=== PATIENT | male | born 1950 | race Caucasian/White ===

== ENCOUNTER → 2016-08-01 | Outpatient (CLI) | payer BC ==
[2016-08-01 11:54] LABS: HEMOGLOBIN A1C 7.9 % (4.5-6.2)
[2016-08-01 12:02] LABS: BLOOD UREA NITROGEN 18 mg/dL (7-18); CALCIUM 9.1 mg/dL (8.5-10.1); CHLORIDE 107 mmol/L (98-107); COR NA(FOR HYPERGLY) 144 mmol/L (136-145); GLUCOSE 190 mg/dL (65-99); SODIUM 142 mmol/L (136-145); TSH (3RD GENERATION) 3.273 uIU/mL (0.358-3.74); eGFR BLACK RACES > 60 (>60); eGFR NON BLACK RACES > 60 (>60)
== END ==
LOC: LAB 11:23
PROVIDERS: ATTEND Nurse Practitioner Family
DX: E03.8 Other specified hypothyroidism (principal); E11.9 Type 2 diabetes mellitus without complications; I10 Essential (primary) hypertension
CPT/HCPCS: 36415; 80048; 83036; 84443

== ENCOUNTER → 2016-10-14 | Outpatient (CLI) | payer OTHER ==
[2016-10-14 09:03] LABS: HEMOGLOBIN A1C 8.2 % (4.5-6.2)
[2016-10-14 09:06] LABS: BLOOD UREA NITROGEN 14 mg/dL (7-18); CALCIUM 9.6 mg/dL (8.5-10.1); CARBON DIOXIDE 30.3 mmol/L (21-32); CHLORIDE 109 mmol/L (98-107); CHOL/HDL RATIO 2.5 (0.0-5.0); CHOLESTEROL 99 mg/dL (0-200); COR NA(FOR HYPERGLY) 146 mmol/L (136-145); CREATININE 0.84 mg/dL (0.70-1.30); GLUCOSE 130 mg/dL (65-99); HDL CHOLESTEROL 40 mg/dL (40-60); SODIUM 145 mmol/L (136-145); TRIGLYCERIDES 102 mg/dL (0-150); eGFR BLACK RACES > 60 (>60); eGFR NON BLACK RACES > 60 (>60)
== END ==
LOC: LAB 08:25
PROVIDERS: ATTEND Nurse Practitioner Family
DX: E78.4 Other hyperlipidemia (principal); E03.8 Other specified hypothyroidism; E11.9 Type 2 diabetes mellitus without complications; I10 Essential (primary) hypertension
CPT/HCPCS: 36415; 80048; 80061; 83036; 84443

== ENCOUNTER → 2017-03-28 | Outpatient (CLI) | payer OTHER ==
--- NOTE | 2017-03-28 10:36 | RAD ---
Examination: Right knee, three views History: Knee pain Findings: There is degenerative narrowing of patellar-femoral and medial compartments. No fracture, b one destruction or synovial effusion is demonstrated. Impression: Osteoarthritis, no acute process identified. Reported By:
== END ==
LOC: RAD 09:57
PROVIDERS: ATTEND Nurse Practitioner Family
DX: M25.561 Pain in right knee (principal); M17.11 Unilateral primary osteoarthritis, right knee
CPT/HCPCS: 73564

== ENCOUNTER 2021-10-14 09:22 | Observation (INO) ==
[2021-10-14 10:37] LABS: BASOPHILS # (AUTO) 0.1 X10^3/uL (0.0-0.1); EOSINOPHILS # (AUTO) 0.5 x10^3/uL (0.0-0.2); EOSINOPHILS % (AUTO) 6.1 % (0.9-2.9); HEMATOCRIT 38.1 % (42.0-54.0); HEMOGLOBIN 12.9 g/dL (13.5-18.0); LYMPHOCYTES % (AUTO) 22.9 % (21.0-51.0); MEAN CORPUSCULAR HEMOGLOBIN 28.8 pg (27.0-34.0); MEAN CORPUSCULAR HGB CONC 33.8 g/dL (33.0-35.0); MEAN PLATELET VOLUME 7.7 fL (7.4-11.0); MONOCYTES # (AUTO) 0.7 x10^3/uL (0.3-0.8); MONOCYTES % (AUTO) 8.7 % (0.0-13.0); NEUTROPHILS # (AUTO) 5.2 x10^3/uL (2.2-4.8); NEUTROPHILS % (AUTO) 61.3 % (42.0-75.0); RED BLOOD COUNT 4.48 X10^6/uL (4.7-6.0); RED CELL DISTRIBUTION WIDTH 13.8 % (11.6-16.5); WHITE BLOOD COUNT 8.5 X10^3/uL (3.6-10.0)
[2021-10-14 10:53] LABS: ALANINE AMINOTRANSFERASE 15 Units/L (12-78); ALBUMIN 3.4 g/dL (3.4-5.0); ALKALINE PHOSPHATASE 84 Units/L (46-116); ASPARTATE AMINO TRANSFERASE 11 Units/L (15-37); BLOOD UREA NITROGEN 21 mg/dL (7-18); CALCIUM 9.5 mg/dL (8.5-10.1); CARBON DIOXIDE 28.5 mmol/L (21-32); CHLORIDE 100 mmol/L (98-107); COR NA(FOR HYPERGLY) 139 mmol/L (136-145); CREATININE 0.95 mg/dL (0.70-1.30); SODIUM 138 mmol/L (136-145); TOTAL PROTEIN 7.1 g/dL (6.4-8.2); eGFR NON BLACK RACES > 60 (>60)
[2021-10-14 11:02] LABS: TOTAL PSA 0.16 ng/mL (0.13-4.0)
[2021-10-14] MEDS: D5 1/2 NS 1,000 ML 1,000 ML IV SCH ×2 (11:15→22:20)
[2021-10-14] MEDS: DILAUDID INJ IVP PRN ×2 (11:45→22:20)
[2021-10-14 12:21] VITALS: BMI 34.4
--- NOTE | 2021-10-14 13:54 | DR.H&P ---
H&P History & Physical for Day of: H&P Date: 10/14/21 Chief Complaint Chief Complaint: back/flank pain Allergies Allergies Allergy/AdvReac Type Severity Reaction Status Date / Time No Known Drug Allergies Allergy Verified 03/03/21 07:37 History of Present Illness History of Present Illness: Mr Rodarte is a 70 y/o male with a PMH of prostate cancer s/p radiation, carcinoid tumor, type 2 diabetes, HTN and HLD presented with worsening right flank pain. He said it started 2 days ago and has been worsening. He came to see Dr Bourgeois this morning for a trigger point injection but he could hardly walk and was in severe pain so he was sent for admission. He states it started suddenly 2 days ago, mostly right side flank area. He states it hurts when he tries to walk. Denies any falls or injuries. Denies heavy lifting or any trauma. He saw Dr De La Rosa (urology) 2 weeks ago. He was suppose to have CTAP done to follow up for his prostate cancer but he could not make his appointment due to severe pain. He denies numbness or tingling. He did not have any bone mets from the cancer. Denies urinary symptoms, denies hematuria. Labs reviewed Plan: continue pain control. Resume home medications. Follow lumbar XR. Will order CTAP to evaluate further. Patient's pain seems to be more in the right flank area. Monitor AM labs/imaging. Past Medical History Past Medical History: Diabetes, Dyslipidemia, Hypertension and Hypothyroidism Additional Medical History: Prostate cancer Carcinoid tumor Social History Does patient currently use any type of tobacco product: No Have you used tobacco products in the last 12 months: No Type of Tobacco Use: None How many years tobacco product used: 0 Alcohol Use: None Drug Use: None Prescription drug monitoring program results: PDMP reviewed and no concerns identified Medications Home Medications: No Known Drug Allergies Allergy (Verified 03/03/21 07:37) CONTINUE taking the following medications carvedilol 12.5 mg PO BID 10/14/21 [History] insulin glargine [Lantus Solostar U-100 Insulin] 65 unit SUBCUT DAILY 10/14/21 [History] ketorolac 10 mg PO PRN PRN 10/14/21 [History] levothyroxine [Synthroid] 200 mcg PO DAILYAC 10/14/21 [History] metformin 750 mg PO BID 10/14/21 [History] nifedipine [Procardia XL] 1 mg PO DAILY 10/14/21 [History] rosuvastatin 40 mg PO HS 10/14/21 [History] saxagliptin-metformin [Kombiglyze XR] 1 tab PO DAILY 10/14/21 [History] tamsulosin 0.4 mg PO HS 10/14/21 [History] Labs Result Diagrams: 10/14/21 10:21 10/14/21 10:21 Labs: Laboratory WBC 8.5 X10^3/uL (3.6-10.0) 10/14/21 10:21 RBC 4.48 X10^6/uL (4.7-6.0) L 10/14/21 10:21 Hgb 12.9 g/dL (13.5-18.0) L 10/14/21 10:21 Hct 38.1 % (42.0-54.0) L 10/14/21 10:21 MCV 85.0 fL (80.0-100.0) 10/14/21 10:21 MCH 28.8 pg (27.0-34.0) 10/14/21 10:21 MCHC 33.8 g/dL (33.0-35.0) 10/14/21 10:21 RDW 13.8 % (11.6-16.5) 10/14/21 10:21 Plt Count 217 X10^3/uL (150.0-450.0) 10/14/21 10:21 MPV 7.7 fL (7.4-11.0) 10/14/21 10:21 Neut % (Auto) 61.3 % (42.0-75.0) 10/14/21 10:21 Lymph % (Auto) 22.9 % (21.0-51.0) 10/14/21 10:21 [place] % (Auto) 8.7 % (0.0-13.0) 10/14/21 10:21 Eos % (Auto) 6.1 % (0.9-2.9) H 10/14/21 10:21 Baso % (Auto) 1.0 % (0.2-1.0) 10/14/21 10:21 Neut # (Auto) 5.2 x10^3/uL (2.2-4.8) H 10/14/21 10:21 Lymph # (Auto) 2.0 X10^3/uL (1.3-2.9) 10/14/21 10:21 [place] # (Auto) 0.7 x10^3/uL (0.3-0.8) 10/14/21 10:21 Eos # (Auto) 0.5 x10^3/uL (0.0-0.2) H 10/14/21 10:21 Baso # (Auto) 0.1 X10^3/uL (0.0-0.1) 10/14/21 10:21 Absolute Nucleated RBC 0.0 /100WBC 10/14/21 10:21 Sodium 138 mmol/L (136-145) 10/14/21 10:21 Corrected Sodium 139 mmol/L (136-145) 10/14/21 10:21 Potassium 4.5 mmol/L (3.5-5.1) 10/14/21 10:21 Chloride 100 mmol/L (98-107) 10/14/21 10:21 Carbon Dioxide 28.5 mmol/L (21-32) 10/14/21 10:21 BUN 21 mg/dL (7-18) H 10/14/21 10:21 Creatinine 0.95 mg/dL (0.70-1.30) 10/14/21 10:21 Est GFR (MDRD) Af Amer > 60 (>60) 10/14/21 10:21 Est GFR (MDRD) Non-Af > 60 (>60) 10/14/21 10:21 Glucose 153 mg/dL (65-99) H 10/14/21 10:21 POC Glucose (mg/dL) 136 mg/dL (65-99) H 10/14/21 13:00 Calcium 9.5 mg/dL (8.5-10.1) 10/14/21 10:21 Corrected Calcium TNP 10/14/21 10:21 Total Bilirubin 0.30 mg/dL (0.2-1.0) 10/14/21 10:21 AST 11 Units/L (15-37) L 10/14/21 10:21 ALT 15 Units/L (12-78) 10/14/21 10:21 Alkaline Phosphatase 84 Units/L (46-116) 10/14/21 10:21 Total Protein 7.1 g/dL (6.4-8.2) 10/14/21 10:21 Albumin 3.4 g/dL (3.4-5.0) 10/14/21 10:21 Globulin 3.7 g/dL (2.5-4.5) 10/14/21 10:21 Albumin/Globulin Ratio 0.9 Ratio (1.1-2.1) L 10/14/21 10:21 Total PSA 0.16 ng/mL (0.13-4.0) 10/14/21 10:21 SARS-CoV-2 (PCR) Negative (NEGATIVE) 10/14/21 10:20 SARS-CoV-2 (PCR) Cancelled 10/14/21 10:20 Review of Systems Constitutional: Weakness Eyes: No Symptoms Reported Respiratory: No Symptoms Reported Cardiovascular: No Symptoms Reported Gastrointestinal: No Symptoms Reported Genitourinary: No Symptoms Reported Musculoskeletal: Back Pain Skin: No Symptoms Reported Neurological: No Symptoms Reported Physical Exam Vital Signs: Temperature 97.0 F Pulse Rate [Bilateral Radial] 62 Respiratory Rate 20 Blood Pressure [Right Arm] 146/74 Blood Pressure 184/86 O2 Sat by Pulse Oximetry 95 Oriented: Normal Eyes: Normal Ear: Normal Nose: Normal Throat: Normal Respiratory: Clear Throughout Cardiovascular: Normal Auscultation: Bowel Sounds: Normal Palpation: Normal Tenderness: Normal Skin: Normal Musculoskeletal: Right (flank tenderness, no bruising or signs of trauma. Focal tenderness. ) and Motor Deficit Psychiatric: Normal Mood Description: Calm Affect: Normal Speech Pattern: Clear and Appropriate Review H&P Reviewed: Yes Patient was examined?: Yes
--- NOTE | 2021-10-14 14:34 | RAD ---
HISTORYSEVERE LOWER BACK PAIN SX BACK SURGERYSTUDYLUMBAR SPINE, COMPLETECOMPARISONFINDINGSThere is retrolisthesis of L2 on L3 and L3 on L4 and L4 on L5. There has been a posterior stabilization spanning from L2 through L5 there is no vertebral compression deformity. There is some chronic wedging L1. There is severe multilevel disc degeneration. There is multilevel facet hypertrophy which is very severe from L4 through S1. There is no pars defect. There is heavy atherosclerosis in the abdominal aorta.IMPRESSIONFairly severe disc and facet degeneration. Nothing acute.Electronically signed by: Carlos Murcia (Oct 14, 2021 14:33:07)
[2021-10-14 16:03] LABS: BILIRUBIN,URINE 2+ (NEGATIVE); BLOOD/HEMOGLOBIN,URINE NEGATIVE (NEGATIVE); GLUCOSE, URINE NEGATIVE (NEGATIVE); KETONES,URINE NEGATIVE (NEGATIVE); LEUKOCYTE ESTERASE ,URINE NEGATIVE (NEGATIVE); NITRITES,URINE NEGATIVE (NEGATIVE); PROTEIN,URINE 2+ (NEGATIVE); UROBILINOGEN,URINE 1+ (NORMAL)
[2021-10-14 16:18] LABS: APPEARANCE,URINE CLEAR (CLEAR); BACTERIA,URINE TRACE /HPF (NEGATIVE); COLOR,URINE AMBER (YELLOW); HYALINE CASTS, URINE FEW /LPF (NEGATIVE); RBC,URINE NONE SEEN /HPF (0-3); SQUAMOUS EPITHELIAL CELL,UR RARE /HPF (NEGATIVE)
[2021-10-14 16:19] LABS: SPERM,URINE RARE /HPF (NEGATIVE)
[2021-10-14] MEDS: LOVENOX INJ 40 MG SYR SC SCH (18:27)
[2021-10-14] MEDS: CRESTOR TAB 10 MG PO SCH (21:07)
[2021-10-14] MEDS: FLOMAX PO SCH (21:07)
[2021-10-14] MEDS: COREG TAB 12.5 MG PO SCH (21:07)
[2021-10-14] MEDS: ZANAFLEX PO PRN (21:07)
[2021-10-14] MEDS: GLUCOPHAGE XR 24-HR PO SCH (21:08)
[2021-10-15 04:50] LABS: BLOOD UREA NITROGEN 19 mg/dL (7-18); CALCIUM 9.3 mg/dL (8.5-10.1); CHLORIDE 100 mmol/L (98-107); COR NA(FOR HYPERGLY) 139 mmol/L (136-145); CREATININE 0.86 mg/dL (0.70-1.30); SODIUM 137 mmol/L (136-145); eGFR NON BLACK RACES > 60 (>60)
[2021-10-15 04:56] LABS: BASOPHILS # (AUTO) 0.1 X10^3/uL (0.0-0.1); EOSINOPHILS # (AUTO) 0.5 x10^3/uL (0.0-0.2); EOSINOPHILS % (AUTO) 7.3 % (0.9-2.9); HEMATOCRIT 32.8 % (42.0-54.0); HEMOGLOBIN 11.3 g/dL (13.5-18.0); LYMPHOCYTES # (AUTO) 2.6 X10^3/uL (1.3-2.9); LYMPHOCYTES % (AUTO) 34.9 % (21.0-51.0); MEAN CORPUSCULAR HEMOGLOBIN 29.2 pg (27.0-34.0); MEAN CORPUSCULAR HGB CONC 34.4 g/dL (33.0-35.0); MEAN CORPUSCULAR VOLUME 84.8 fL (80.0-100.0); MEAN PLATELET VOLUME 7.5 fL (7.4-11.0); MONOCYTES # (AUTO) 0.6 x10^3/uL (0.3-0.8); MONOCYTES % (AUTO) 8.6 % (0.0-13.0); NEUTROPHILS # (AUTO) 3.6 x10^3/uL (2.2-4.8); NEUTROPHILS % (AUTO) 48.2 % (42.0-75.0); RED BLOOD COUNT 3.87 X10^6/uL (4.7-6.0); RED CELL DISTRIBUTION WIDTH 13.7 % (11.6-16.5); WHITE BLOOD COUNT 7.4 X10^3/uL (3.6-10.0)
[2021-10-15] MEDS: DILAUDID INJ IVP PRN ×3 (05:58→17:22)
[2021-10-15] MEDS: SYNTHROID 100 mcg TAB PO SCH (05:58)
--- NOTE | 2021-10-15 08:43 | PCM.PROG ---
Progress Note Progress Note for Day of Date of Exam: 10/15/21 Subjective Subjective: Patient seen at bedside, no acute events overnight. He feels slightly better this morning. He still has pain in that right flank/abdomen area. He is going to have CTAP done this morning. Labs and imaging reviewed Lumbar XR: severe multilevel DDD Plan: follow CTAP for cancer surveillance. Patient does have a hx of prostate cancer s/p radiation. Continue pain control and muscle relaxer. Continue home medications. PT/OT as tolerated. Monitor AM labs/imaging. Past Medical Family Social History Past Med/Fam/Surg Hx: No changes since H&P Allergies: Allergies No Known Drug Allergies Allergy (Verified 03/03/21 07:37) Review of Systems ROS: No change since H&P Vital Signs and I&O's Vital Signs: Temperature 98.5 F Pulse Rate [Bilateral Radial] 61 Respiratory Rate 20 Blood Pressure [Right Arm] 175/79 Blood Pressure 184/86 O2 Sat by Pulse Oximetry 95 Intake and Output: Intake & Output 10/12/21 10/13/21 10/14/21 10/15/21 23:59 23:59 23:59 23:59 Intake Total 860 / 860 1138 / 1138 Output Total 1200 / 1200 850 / 850 Balance -340 / -340 288 / 288 Physical Exam Oriented: Normal Eyes: Normal Ear: Normal Nose: Normal Throat: Normal Respiratory: Normal Cardiovascular: Normal Auscultation: Bowel Sounds: Normal Tenderness: Normal, Mild and Other (right flank area mild tenderness, soft ) Skin: Normal Musculoskeletal: Right (flank tenderness, no bruising or signs of trauma. Focal tenderness. ) and Motor Deficit Psychiatric: Normal Mood Description: Calm Affect: Normal Speech Pattern: Clear and Appropriate Laboratory and Diagnostics Result Diagrams: 10/15/21 04:30 10/15/21 04:30 Labs: Laboratory WBC 7.4 X10^3/uL (3.6-10.0) 10/15/21 04:30 RBC 3.87 X10^6/uL (4.7-6.0) L 10/15/21 04:30 Hgb 11.3 g/dL (13.5-18.0) L 10/15/21 04:30 Hct 32.8 % (42.0-54.0) L 10/15/21 04:30 MCV 84.8 fL (80.0-100.0) 10/15/21 04:30 MCH 29.2 pg (27.0-34.0) 10/15/21 04:30 MCHC 34.4 g/dL (33.0-35.0) 10/15/21 04:30 RDW 13.7 % (11.6-16.5) 10/15/21 04:30 Plt Count 180 X10^3/uL (150.0-450.0) 10/15/21 04:30 MPV 7.5 fL (7.4-11.0) 10/15/21 04:30 Neut % (Auto) 48.2 % (42.0-75.0) 10/15/21 04:30 Lymph % (Auto) 34.9 % (21.0-51.0) 10/15/21 04:30 [place] % (Auto) 8.6 % (0.0-13.0) 10/15/21 04:30 Eos % (Auto) 7.3 % (0.9-2.9) H 10/15/21 04:30 Baso % (Auto) 1.0 % (0.2-1.0) 10/15/21 04:30 Neut # (Auto) 3.6 x10^3/uL (2.2-4.8) 10/15/21 04:30 Lymph # (Auto) 2.6 X10^3/uL (1.3-2.9) 10/15/21 04:30 [place] # (Auto) 0.6 x10^3/uL (0.3-0.8) 10/15/21 04:30 Eos # (Auto) 0.5 x10^3/uL (0.0-0.2) H 10/15/21 04:30 Baso # (Auto) 0.1 X10^3/uL (0.0-0.1) 10/15/21 04:30 Absolute Nucleated RBC 0.1 /100WBC 10/15/21 04:30 Sodium 137 mmol/L (136-145) 10/15/21 04:30 Corrected Sodium 139 mmol/L (136-145) 10/15/21 04:30 Potassium 4.0 mmol/L (3.5-5.1) 10/15/21 04:30 Chloride 100 mmol/L (98-107) 10/15/21 04:30 Carbon Dioxide 29.0 mmol/L (21-32) 10/15/21 04:30 BUN 19 mg/dL (7-18) H 10/15/21 04:30 Creatinine 0.86 mg/dL (0.70-1.30) 10/15/21 04:30 Est GFR (MDRD) Af Amer > 60 (>60) 10/15/21 04:30 Est GFR (MDRD) Non-Af > 60 (>60) 10/15/21 04:30 Glucose 188 mg/dL (65-99) H 10/15/21 04:30 POC Glucose (mg/dL) 152 mg/dL (65-99) H 10/14/21 20:02 Calcium 9.3 mg/dL (8.5-10.1) 10/15/21 04:30 Corrected Calcium TNP 10/14/21 10:21 Total Bilirubin 0.30 mg/dL (0.2-1.0) 10/14/21 10:21 AST 11 Units/L (15-37) L 10/14/21 10:21 ALT 15 Units/L (12-78) 10/14/21 10:21 Alkaline Phosphatase 84 Units/L (46-116) 10/14/21 10:21 Total Protein 7.1 g/dL (6.4-8.2) 10/14/21 10:21 Albumin 3.4 g/dL (3.4-5.0) 10/14/21 10:21 Globulin 3.7 g/dL (2.5-4.5) 10/14/21 10:21 Albumin/Globulin Ratio 0.9 Ratio (1.1-2.1) L 10/14/21 10:21 Total PSA 0.16 ng/mL (0.13-4.0) 10/14/21 10:21 Specimen Type Clean catch urine 10/14/21 15:50 Urine Color [place] (YELLOW) 10/14/21 15:50 Urine Appearance Clear (CLEAR) 10/14/21 15:50 Urine pH 5.0 (5.0 - 8.0) 10/14/21 15:50 Ur Specific [place] 1.025 (1.000-1.030) 10/14/21 15:50 Urine Protein 2+ (NEGATIVE) 10/14/21 15:50 Urine Glucose (UA) Negative (NEGATIVE) 10/14/21 15:50 Urine Ketones Negative (NEGATIVE) 10/14/21 15:50 Urine Blood Negative (NEGATIVE) 10/14/21 15:50 Urine Nitrite Negative (NEGATIVE) 10/14/21 15:50 Urine Bilirubin 2+ (NEGATIVE) 10/14/21 15:50 Urine Urobilinogen 1+ (NORMAL) 10/14/21 15:50 Ur Leukocyte Esterase Negative (NEGATIVE) 10/14/21 15:50 Urine RBC None seen /HPF (0-3) 10/14/21 15:50 Urine WBC 0-2 /HPF (0-5) 10/14/21 15:50 Ur Squamous Epith Cells Rare /HPF (NEGATIVE) 10/14/21 15:50 Amorphous Sediment 1+ /HPF (NEGATIVE) 10/14/21 15:50 Urine Bacteria Trace /HPF (NEGATIVE) 10/14/21 15:50 Hyaline Casts Few /LPF (NEGATIVE) 10/14/21 15:50 Urine Mucus Few /HPF (NEGATIVE) 10/14/21 15:50 Urine Sperm Rare /HPF (NEGATIVE) 10/14/21 15:50 Ur Culture Indicated? No/not indicated 10/14/21 15:50 SARS-CoV-2 (PCR) Negative (NEGATIVE) 10/14/21 10:20 SARS-CoV-2 (PCR) Cancelled 10/14/21 10:20 Plan (1) Flank pain: Status: Acute (2) Impaired ambulation: Status: Acute (3) Prostate cancer: Status: Acute (4) HTN (hypertension): Status: Acute Qualifiers: Hypertension type: primary hypertension Qualified Code(s): I10 - Essential (primary) hypertension (5) Type 2 diabetes mellitus: Status: Acute Qualifiers: Diabetes mellitus complication status: without complication Diabetes mellitus alf insulin use: with long term care phlebotomist use Qualified Code(s): E11.9 - Type 2 diabetes mellitus without complications; Z79.4 - custodial (current) use of insulin (6) Multilevel degenerative disc disease: Status: Acute (7) Hypothyroidism: Status: Acute Qualifiers: Hypothyroidism type: acquired Qualified Code(s): E03.9 - Hypothyroidism, unspecified
[2021-10-15] MEDS: COREG TAB 12.5 MG PO SCH ×2 (08:55→20:58)
[2021-10-15] MEDS ORDERED: LANTUS SC SCH (09:00)
[2021-10-15] MEDS: GLUCOPHAGE XR 24-HR PO SCH (09:02)
[2021-10-15] MEDS: LOVENOX INJ 40 MG SYR SC SCH (10:05)
[2021-10-15] MEDS: PROCARDIA XL PO SCH (10:05)
--- NOTE | 2021-10-15 12:08 | CT ---
ABDOMEN/PELVIS WITH CONHISTORY: LOWER RIGHT ABD PAINComparison:NoneTechnique:Multiple axial images of the abdomen and pelvis were obtained from the lung bases to the pubic symphysis following the administration of IV contrast as well as oral contrast . Dose reduction techniques including Automated Exposure Control (AEC) and adjustment of mA and kV were utlized.Findings:The heart is normal in size. There is no pericardial effusion. Lung bases are clear without focal consolidation, pleural effusion or pneumothorax.Liver and spleen are normal in size, enhancement characteristics and contour. No focal lesions. The portal vein is patent. No ductal dilitation. Gallbladder is present. No calcified gallstones or gallbladder wall thickening. The pancreas is unremarkable. 1.8 cm right adrenal myelolipoma, unchanged. Kidneys enhance symmetrically without hydronephrosis or nephrolithiasis.No bowel obstruction or inflammation. Appendix not clearly seen however there is no inflammatory change in the right lower quadrant to suggest appendicitis. No abnormal appearing mesenteric or retroperitoneal lymph nodes. . No free fluid or fluid collections.The bladder is normal in appearance. Prostate measures 5.4 cm. Fat containing right inguinal hernia. No free fluid or abnormal pelvic lymph nodes.No aggressive osseous lesions.IMPRESSION:1.No definite source of abdominal pain identified.2. Unchanged incidental findings as above.Electronically signed by: SURYA JIMENEZ (Oct 15, 2021 12:06:47)
[2021-10-15] MEDS: FLEXERIL TAB 10 MG PO SCH ×2 (12:38→19:55)
[2021-10-15] MEDS: D5 1/2 NS 1,000 ML 1,000 ML IV SCH (12:39)
[2021-10-15] MEDS: SOLU-Medrol 125 MG VIAL IVP SCH ×2 (12:40→20:59)
--- NOTE | 2021-10-15 13:00 | DR.PROGNOT ---
Hospital Progress Notes - Progress Note for Day of: Progress Note Date: 10/15/21 - Chief Complaint Chief Complaint: still having severe pain RT lower back and leg .. X Ray showed lumbar disc disease and arthritis .. normal lab work . normal PSA and Ca . - Past Medical Family Social History Past Med/Fam/Surg Hx: No changes since H&P Allergies: Allergies No Known Drug Allergies Allergy (Verified 03/03/21 07:37) - Review Of Systems ROS: No change since H&P - Vital Signs Vital Signs: Temperature 98.5 F Pulse Rate [Bilateral Radial] 61 Respiratory Rate 20 Blood Pressure [Right Arm] 175/79 Blood Pressure 184/86 O2 Sat by Pulse Oximetry 95 - Physical Exam Oriented: Normal Eyes: Normal Ear: Normal Nose: Normal Throat: Normal Respiratory: Normal Cardiovascular: Normal GI:Auscultation: Normal GI:Palpation: Normal GI: Tenderness: Mild, Normal, Other (right flank area mild tenderness, soft) Skin: Normal Musculoskeletal: Right (flank tenderness, no bruising or signs of trauma. Focal tenderness.), Motor Deficit Psychiatric: Normal Mood Description: Calm Affect: Normal Speech Pattern: Clear, Appropriate - Laboratory and Diagnostics Result Diagrams: 10/15/21 04:30 10/15/21 04:30 Labs: Laboratory WBC 7.4 X10^3/uL (3.6-10.0) 10/15/21 04:30 RBC 3.87 X10^6/uL (4.7-6.0) L 10/15/21 04:30 Hgb 11.3 g/dL (13.5-18.0) L 10/15/21 04:30 Hct 32.8 % (42.0-54.0) L 10/15/21 04:30 MCV 84.8 fL (80.0-100.0) 10/15/21 04:30 MCH 29.2 pg (27.0-34.0) 10/15/21 04:30 MCHC 34.4 g/dL (33.0-35.0) 10/15/21 04:30 RDW 13.7 % (11.6-16.5) 10/15/21 04:30 Plt Count 180 X10^3/uL (150.0-450.0) 10/15/21 04:30 MPV 7.5 fL (7.4-11.0) 10/15/21 04:30 Neut % (Auto) 48.2 % (42.0-75.0) 10/15/21 04:30 Lymph % (Auto) 34.9 % (21.0-51.0) 10/15/21 04:30 [place] % (Auto) 8.6 % (0.0-13.0) 10/15/21 04:30 Eos % (Auto) 7.3 % (0.9-2.9) H 10/15/21 04:30 Baso % (Auto) 1.0 % (0.2-1.0) 10/15/21 04:30 Neut # (Auto) 3.6 x10^3/uL (2.2-4.8) 10/15/21 04:30 Lymph # (Auto) 2.6 X10^3/uL (1.3-2.9) 10/15/21 04:30 [place] # (Auto) 0.6 x10^3/uL (0.3-0.8) 10/15/21 04:30 Eos # (Auto) 0.5 x10^3/uL (0.0-0.2) H 10/15/21 04:30 Baso # (Auto) 0.1 X10^3/uL (0.0-0.1) 10/15/21 04:30 Absolute Nucleated RBC 0.1 /100WBC 10/15/21 04:30 Sodium 137 mmol/L (136-145) 10/15/21 04:30 Corrected Sodium 139 mmol/L (136-145) 10/15/21 04:30 Potassium 4.0 mmol/L (3.5-5.1) 10/15/21 04:30 Chloride 100 mmol/L (98-107) 10/15/21 04:30 Carbon Dioxide 29.0 mmol/L (21-32) 10/15/21 04:30 BUN 19 mg/dL (7-18) H 10/15/21 04:30 Creatinine 0.86 mg/dL (0.70-1.30) 10/15/21 04:30 Est GFR (MDRD) Af Amer > 60 (>60) 10/15/21 04:30 Est GFR (MDRD) Non-Af > 60 (>60) 10/15/21 04:30 Glucose 188 mg/dL (65-99) H 10/15/21 04:30 POC Glucose (mg/dL) 215 mg/dL (65-99) H 10/15/21 12:49 Calcium 9.3 mg/dL (8.5-10.1) 10/15/21 04:30 Corrected Calcium TNP 10/14/21 10:21 Total Bilirubin 0.30 mg/dL (0.2-1.0) 10/14/21 10:21 AST 11 Units/L (15-37) L 10/14/21 10:21 ALT 15 Units/L (12-78) 10/14/21 10:21 Alkaline Phosphatase 84 Units/L (46-116) 10/14/21 10:21 Total Protein 7.1 g/dL (6.4-8.2) 10/14/21 10:21 Albumin 3.4 g/dL (3.4-5.0) 10/14/21 10:21 Globulin 3.7 g/dL (2.5-4.5) 10/14/21 10:21 Albumin/Globulin Ratio 0.9 Ratio (1.1-2.1) L 10/14/21 10:21 Total PSA 0.16 ng/mL (0.13-4.0) 10/14/21 10:21 Specimen Type Clean catch urine 10/14/21 15:50 Urine Color [place] (YELLOW) 10/14/21 15:50 Urine Appearance Clear (CLEAR) 10/14/21 15:50 Urine pH 5.0 (5.0 - 8.0) 10/14/21 15:50 Ur Specific [place] 1.025 (1.000-1.030) 10/14/21 15:50 Urine Protein 2+ (NEGATIVE) 10/14/21 15:50 Urine Glucose (UA) Negative (NEGATIVE) 10/14/21 15:50 Urine Ketones Negative (NEGATIVE) 10/14/21 15:50 Urine Blood Negative (NEGATIVE) 10/14/21 15:50 Urine Nitrite Negative (NEGATIVE) 10/14/21 15:50 Urine Bilirubin 2+ (NEGATIVE) 10/14/21 15:50 Urine Urobilinogen 1+ (NORMAL) 10/14/21 15:50 Ur Leukocyte Esterase Negative (NEGATIVE) 10/14/21 15:50 Urine RBC None seen /HPF (0-3) 10/14/21 15:50 Urine WBC 0-2 /HPF (0-5) 10/14/21 15:50 Ur Squamous Epith Cells Rare /HPF (NEGATIVE) 10/14/21 15:50 Amorphous Sediment 1+ /HPF (NEGATIVE) 10/14/21 15:50 Urine Bacteria Trace /HPF (NEGATIVE) 10/14/21 15:50 Hyaline Casts Few /LPF (NEGATIVE) 10/14/21 15:50 Urine Mucus Few /HPF (NEGATIVE) 10/14/21 15:50 Urine Sperm Rare /HPF (NEGATIVE) 10/14/21 15:50 Ur Culture Indicated? No/not indicated 10/14/21 15:50 SARS-CoV-2 (PCR) Negative (NEGATIVE) 10/14/21 10:20 SARS-CoV-2 (PCR) Cancelled 10/14/21 10:20 - Assessment and Plan 1: lower back and RT flank pain . disc disease and radiculopathy . RT inguinal hernia .. on IV steroids, muscle relaxants and pain control ..
[2021-10-15] MEDS: NovoLIN R (or HumuLIN R) SC PRN ×4 (13:02→21:00)
[2021-10-15] MEDS ORDERED: CATAPRES TAB 0.1 MG PO ONE (17:55)
[2021-10-15] MEDS: CRESTOR TAB 10 MG PO SCH (20:58)
[2021-10-15] MEDS: FLOMAX PO SCH (20:59)
[2021-10-15] MEDS: ZANAFLEX PO PRN (20:59)
[2021-10-16] MEDS: DILAUDID INJ IVP PRN ×5 (00:09→23:17)
[2021-10-16] MEDS: FLEXERIL TAB 10 MG PO SCH ×4 (00:13→18:54)
[2021-10-16] MEDS: D5 1/2 NS 1,000 ML 1,000 ML IV SCH ×2 (02:46→07:08)
[2021-10-16 05:16] LABS: BLOOD UREA NITROGEN 17 mg/dL (7-18); CALCIUM 9.1 mg/dL (8.5-10.1); CARBON DIOXIDE 29.3 mmol/L (21-32); CHLORIDE 97 mmol/L (98-107); COR NA(FOR HYPERGLY) 139 mmol/L (136-145); CREATININE 0.94 mg/dL (0.70-1.30); SODIUM 133 mmol/L (136-145); eGFR NON BLACK RACES > 60 (>60)
[2021-10-16 05:19] LABS: BASOPHILS % (AUTO) 0.3 % (0.2-1.0); EOSINOPHILS % (AUTO) 0.1 % (0.9-2.9); HEMATOCRIT 35.8 % (42.0-54.0); HEMOGLOBIN 12.2 g/dL (13.5-18.0); LYMPHOCYTES # (AUTO) 0.8 X10^3/uL (1.3-2.9); LYMPHOCYTES % (AUTO) 9.8 % (21.0-51.0); MEAN CORPUSCULAR HEMOGLOBIN 28.8 pg (27.0-34.0); MEAN CORPUSCULAR VOLUME 84.6 fL (80.0-100.0); MONOCYTES # (AUTO) 0.2 x10^3/uL (0.3-0.8); NEUTROPHILS # (AUTO) 7.3 x10^3/uL (2.2-4.8); NEUTROPHILS % (AUTO) 87.8 % (42.0-75.0); RED BLOOD COUNT 4.23 X10^6/uL (4.7-6.0); RED CELL DISTRIBUTION WIDTH 13.7 % (11.6-16.5); WHITE BLOOD COUNT 8.3 X10^3/uL (3.6-10.0)
[2021-10-16] MEDS: NovoLIN R (or HumuLIN R) SC PRN ×4 (05:47→21:05)
[2021-10-16] MEDS: SYNTHROID 100 mcg TAB PO SCH (05:48)
[2021-10-16] MEDS: SOLU-Medrol 125 MG VIAL IVP SCH ×2 (08:40→21:04)
[2021-10-16] MEDS: PROCARDIA XL PO SCH (08:41)
[2021-10-16] MEDS: COREG TAB 12.5 MG PO SCH ×2 (08:41→21:01)
[2021-10-16] MEDS: LOVENOX INJ 40 MG SYR SC SCH (08:42)
[2021-10-16] MEDS: NS 1,000 ML IV 1,000 ML IV SCH ×3 (08:47→23:18)
[2021-10-16] MEDS ORDERED: LANTUS SC SCH (09:00)
--- NOTE | 2021-10-16 09:17 | RAD ---
HISTORYACUTE PAIN, NO TRAUMASTUDYHIP-RIGHT two [id number] pelvic ring is intact. No acute fracture or dislocation of the hip. Frog leg views of the hip demonstrate no evidence for fracture. No significant hip arthrosis. Partially visualized lumbar hardware.IMPRESSIONNo acute fracture or dislocation.Electronically signed by: MASON ESTRADA (Oct 16, 2021 09:16:10)
--- NOTE | 2021-10-16 09:40 | DR.PROGNOT ---
Hospital Progress Notes - Progress Note for Day of: Progress Note Date: 10/16/21 - Chief Complaint Chief Complaint: still having severe pain RT lower back and leg .improved with sreroids and pain meds .. X Ray showed lumbar disc disease and arthritis .. pelvic and hip X Rays are normal . normal lab work . normal PSA and Ca . - Past Medical Family Social History Past Med/Fam/Surg Hx: No changes since H&P Allergies: Allergies No Known Drug Allergies Allergy (Verified 03/03/21 07:37) - Review Of Systems ROS: No change since H&P - Vital Signs Vital Signs: Temperature 98.6 F Pulse Rate [Left Brachial] 58 Pulse Rate [Bilateral Radial] 60 Respiratory Rate 20 Blood Pressure [Left Arm] 179/88 Blood Pressure [Right Arm] 177/72 Blood Pressure 184/86 O2 Sat by Pulse Oximetry 96 - Physical Exam Oriented: Normal Eyes: Normal Ear: Normal Nose: Normal Throat: Normal Respiratory: Normal Cardiovascular: Normal GI:Auscultation: Normal GI:Palpation: Normal GI: Tenderness: Mild, Normal, Other (right flank area mild tenderness, soft) Skin: Normal Musculoskeletal: Right (flank tenderness, no bruising or signs of trauma. Focal tenderness.), Motor Deficit Psychiatric: Normal Mood Description: Calm Affect: Normal Speech Pattern: Clear, Appropriate - Laboratory and Diagnostics Result Diagrams: 10/16/21 04:05 10/16/21 04:05 Labs: Laboratory WBC 8.3 X10^3/uL (3.6-10.0) 10/16/21 04:05 RBC 4.23 X10^6/uL (4.7-6.0) L 10/16/21 04:05 Hgb 12.2 g/dL (13.5-18.0) L 10/16/21 04:05 Hct 35.8 % (42.0-54.0) L 10/16/21 04:05 MCV 84.6 fL (80.0-100.0) 10/16/21 04:05 MCH 28.8 pg (27.0-34.0) 10/16/21 04:05 MCHC 34.0 g/dL (33.0-35.0) 10/16/21 04:05 RDW 13.7 % (11.6-16.5) 10/16/21 04:05 Plt Count 196 X10^3/uL (150.0-450.0) 10/16/21 04:05 MPV 8.0 fL (7.4-11.0) 10/16/21 04:05 Neut % (Auto) 87.8 % (42.0-75.0) H 10/16/21 04:05 Lymph % (Auto) 9.8 % (21.0-51.0) L 10/16/21 04:05 [place] % (Auto) 2.0 % (0.0-13.0) 10/16/21 04:05 Eos % (Auto) 0.1 % (0.9-2.9) L 10/16/21 04:05 Baso % (Auto) 0.3 % (0.2-1.0) 10/16/21 04:05 Neut # (Auto) 7.3 x10^3/uL (2.2-4.8) H 10/16/21 04:05 Lymph # (Auto) 0.8 X10^3/uL (1.3-2.9) L 10/16/21 04:05 [place] # (Auto) 0.2 x10^3/uL (0.3-0.8) L 10/16/21 04:05 Eos # (Auto) 0.0 x10^3/uL (0.0-0.2) 10/16/21 04:05 Baso # (Auto) 0.0 X10^3/uL (0.0-0.1) 10/16/21 04:05 Absolute Nucleated RBC 0.1 /100WBC 10/16/21 04:05 Sodium 133 mmol/L (136-145) L 10/16/21 04:05 Corrected Sodium 139 mmol/L (136-145) 10/16/21 04:05 Potassium 4.1 mmol/L (3.5-5.1) 10/16/21 04:05 Chloride 97 mmol/L (98-107) L 10/16/21 04:05 Carbon Dioxide 29.3 mmol/L (21-32) 10/16/21 04:05 BUN 17 mg/dL (7-18) 10/16/21 04:05 Creatinine 0.94 mg/dL (0.70-1.30) 10/16/21 04:05 Est GFR (MDRD) Af Amer > 60 (>60) 10/16/21 04:05 Est GFR (MDRD) Non-Af > 60 (>60) 10/16/21 04:05 Glucose 344 mg/dL (65-99) H 10/16/21 04:05 POC Glucose (mg/dL) 267 mg/dL (65-99) H 10/15/21 19:46 Calcium 9.1 mg/dL (8.5-10.1) 10/16/21 04:05 Corrected Calcium TNP 10/14/21 10:21 Total Bilirubin 0.30 mg/dL (0.2-1.0) 10/14/21 10:21 AST 11 Units/L (15-37) L 10/14/21 10:21 ALT 15 Units/L (12-78) 10/14/21 10:21 Alkaline Phosphatase 84 Units/L (46-116) 10/14/21 10:21 Total Protein 7.1 g/dL (6.4-8.2) 10/14/21 10:21 Albumin 3.4 g/dL (3.4-5.0) 10/14/21 10:21 Globulin 3.7 g/dL (2.5-4.5) 10/14/21 10:21 Albumin/Globulin Ratio 0.9 Ratio (1.1-2.1) L 10/14/21 10:21 Total PSA 0.16 ng/mL (0.13-4.0) 10/14/21 10:21 Specimen Type Clean catch urine 10/14/21 15:50 Urine Color Susana (YELLOW) 10/14/21 15:50 Urine Appearance Clear (CLEAR) 10/14/21 15:50 Urine pH 5.0 (5.0 - 8.0) 10/14/21 15:50 Ur Specific [place] 1.025 (1.000-1.030) 10/14/21 15:50 Urine Protein 2+ (NEGATIVE) 10/14/21 15:50 Urine Glucose (UA) Negative (NEGATIVE) 10/14/21 15:50 Urine Ketones Negative (NEGATIVE) 10/14/21 15:50 Urine Blood Negative (NEGATIVE) 10/14/21 15:50 Urine Nitrite Negative (NEGATIVE) 10/14/21 15:50 Urine Bilirubin 2+ (NEGATIVE) 10/14/21 15:50 Urine Urobilinogen 1+ (NORMAL) 10/14/21 15:50 Ur Leukocyte Esterase Negative (NEGATIVE) 10/14/21 15:50 Urine RBC None seen /HPF (0-3) 10/14/21 15:50 Urine WBC 0-2 /HPF (0-5) 10/14/21 15:50 Ur Squamous Epith Cells Rare /HPF (NEGATIVE) 10/14/21 15:50 Amorphous Sediment 1+ /HPF (NEGATIVE) 10/14/21 15:50 Urine Bacteria Trace /HPF (NEGATIVE) 10/14/21 15:50 Hyaline Casts Few /LPF (NEGATIVE) 10/14/21 15:50 Urine Mucus Few /HPF (NEGATIVE) 10/14/21 15:50 Urine Sperm Rare /HPF (NEGATIVE) 10/14/21 15:50 Ur Culture Indicated? No/not indicated 10/14/21 15:50 SARS-CoV-2 (PCR) Negative (NEGATIVE) 10/14/21 10:20 SARS-CoV-2 (PCR) Cancelled 10/14/21 10:20 - Assessment and Plan 1: lower back and RT flank pain . disc disease and radiculopathy . RT inguinal hernia .. on IV steroids, muscle relaxants and pain control .. for MRI lower back on Monday ..
[2021-10-16] MEDS: NEURONTIN CAP 300 MG PO SCH ×3 (12:02→21:02)
--- NOTE | 2021-10-16 19:53 | PCM.PROG ---
Progress Note Progress Note for Day of Date of Exam: 10/16/21 Subjective Subjective: Patient seen at bedside, patient's BP was elevated yesterday. He did get a dose of clonidine. He continues to have right sided flank/lower back pain. CTAP did not show any acute changes. He is currently on pain control with Dilaudid, tizanidine and steroids. He has not been able to stand up due to severe pain. Denies N/V/D. Labs/imaging reviewed Plan: continue pain control with Dilaudid, gabapentin and tizanidine. Continue IV steroids. Get right hip XR to rule out any fracture. Patient does have a back stimulator, will check with radiology if he can get MRI. PT/OT as tolerated. Increase lantus to 30 units, continue SSI. Monitor AM labs/imaging. Past Medical Family Social History Past Med/Fam/Surg Hx: No changes since H&P Allergies: Allergies No Known Drug Allergies Allergy (Verified 03/03/21 07:37) Review of Systems ROS: No change since H&P Vital Signs and I&O's Vital Signs: Temperature 98.1 F Pulse Rate [Left Brachial] 66 Pulse Rate [Bilateral Radial] 60 Respiratory Rate 18 Blood Pressure [Left Arm] 170/82 Blood Pressure [Right Arm] 177/72 Blood Pressure 184/86 O2 Sat by Pulse Oximetry 95 Intake and Output: Intake & Output 10/13/21 10/14/21 10/15/21 10/16/21 23:59 23:59 23:59 23:59 Intake Total 860 / 860 2979 / 2979 2449 / 2449 Output Total 1200 / 1200 3660 / 3660 825 / 825 Balance -340 / -340 -681 / -681 1624 / 1624 Physical Exam Oriented: Normal Eyes: Normal Ear: Normal Nose: Normal Throat: Normal Respiratory: Normal Cardiovascular: Normal Auscultation: Bowel Sounds: Normal Tenderness: Normal, Mild and Other (right flank area mild tenderness, soft ) Skin: Normal Musculoskeletal: Right (right lower back/flank tenderness, no bruising or signs of trauma. Focal tenderness. ) and Motor Deficit Psychiatric: Normal Mood Description: Calm Affect: Normal Speech Pattern: Clear and Appropriate Laboratory and Diagnostics Result Diagrams: 10/16/21 04:05 10/16/21 17:15 Labs: Laboratory WBC 8.3 X10^3/uL (3.6-10.0) 10/16/21 04:05 RBC 4.23 X10^6/uL (4.7-6.0) L 10/16/21 04:05 Hgb 12.2 g/dL (13.5-18.0) L 10/16/21 04:05 Hct 35.8 % (42.0-54.0) L 10/16/21 04:05 MCV 84.6 fL (80.0-100.0) 10/16/21 04:05 MCH 28.8 pg (27.0-34.0) 10/16/21 04:05 MCHC 34.0 g/dL (33.0-35.0) 10/16/21 04:05 RDW 13.7 % (11.6-16.5) 10/16/21 04:05 Plt Count 196 X10^3/uL (150.0-450.0) 10/16/21 04:05 MPV 8.0 fL (7.4-11.0) 10/16/21 04:05 Neut % (Auto) 87.8 % (42.0-75.0) H 10/16/21 04:05 Lymph % (Auto) 9.8 % (21.0-51.0) L 10/16/21 04:05 [place] % (Auto) 2.0 % (0.0-13.0) 10/16/21 04:05 Eos % (Auto) 0.1 % (0.9-2.9) L 10/16/21 04:05 Baso % (Auto) 0.3 % (0.2-1.0) 10/16/21 04:05 Neut # (Auto) 7.3 x10^3/uL (2.2-4.8) H 10/16/21 04:05 Lymph # (Auto) 0.8 X10^3/uL (1.3-2.9) L 10/16/21 04:05 [place] # (Auto) 0.2 x10^3/uL (0.3-0.8) L 10/16/21 04:05 Eos # (Auto) 0.0 x10^3/uL (0.0-0.2) 10/16/21 04:05 Baso # (Auto) 0.0 X10^3/uL (0.0-0.1) 10/16/21 04:05 Absolute Nucleated RBC 0.1 /100WBC 10/16/21 04:05 Sodium 133 mmol/L (136-145) L 10/16/21 04:05 Corrected Sodium 139 mmol/L (136-145) 10/16/21 04:05 Potassium 4.1 mmol/L (3.5-5.1) 10/16/21 04:05 Chloride 97 mmol/L (98-107) L 10/16/21 04:05 Carbon Dioxide 29.3 mmol/L (21-32) 10/16/21 04:05 BUN 17 mg/dL (7-18) 10/16/21 04:05 Creatinine 0.94 mg/dL (0.70-1.30) 10/16/21 04:05 Est GFR (MDRD) Af Amer > 60 (>60) 10/16/21 04:05 Est GFR (MDRD) Non-Af > 60 (>60) 10/16/21 04:05 Glucose 429 mg/dL (65-99) H 10/16/21 17:15 POC Glucose (mg/dL) 445 mg/dL (65-99) H 10/16/21 17:01 Calcium 9.1 mg/dL (8.5-10.1) 10/16/21 04:05 Corrected Calcium TNP 10/14/21 10:21 Total Bilirubin 0.30 mg/dL (0.2-1.0) 10/14/21 10:21 AST 11 Units/L (15-37) L 10/14/21 10:21 ALT 15 Units/L (12-78) 10/14/21 10:21 Alkaline Phosphatase 84 Units/L (46-116) 10/14/21 10:21 Total Protein 7.1 g/dL (6.4-8.2) 10/14/21 10:21 Albumin 3.4 g/dL (3.4-5.0) 10/14/21 10:21 Globulin 3.7 g/dL (2.5-4.5) 10/14/21 10:21 Albumin/Globulin Ratio 0.9 Ratio (1.1-2.1) L 10/14/21 10:21 Total PSA 0.16 ng/mL (0.13-4.0) 10/14/21 10:21 Specimen Type Clean catch urine 10/14/21 15:50 Urine Color [place] (YELLOW) 10/14/21 15:50 Urine Appearance Clear (CLEAR) 10/14/21 15:50 Urine pH 5.0 (5.0 - 8.0) 10/14/21 15:50 Ur Specific [place] 1.025 (1.000-1.030) 10/14/21 15:50 Urine Protein 2+ (NEGATIVE) 10/14/21 15:50 Urine Glucose (UA) Negative (NEGATIVE) 10/14/21 15:50 Urine Ketones Negative (NEGATIVE) 10/14/21 15:50 Urine Blood Negative (NEGATIVE) 10/14/21 15:50 Urine Nitrite Negative (NEGATIVE) 10/14/21 15:50 Urine Bilirubin 2+ (NEGATIVE) 10/14/21 15:50 Urine Urobilinogen 1+ (NORMAL) 10/14/21 15:50 Ur Leukocyte Esterase Negative (NEGATIVE) 10/14/21 15:50 Urine RBC None seen /HPF (0-3) 10/14/21 15:50 Urine WBC 0-2 /HPF (0-5) 10/14/21 15:50 Ur Squamous Epith Cells Rare /HPF (NEGATIVE) 10/14/21 15:50 Amorphous Sediment 1+ /HPF (NEGATIVE) 10/14/21 15:50 Urine Bacteria Trace /HPF (NEGATIVE) 10/14/21 15:50 Hyaline Casts Few /LPF (NEGATIVE) 10/14/21 15:50 Urine Mucus Few /HPF (NEGATIVE) 10/14/21 15:50 Urine Sperm Rare /HPF (NEGATIVE) 10/14/21 15:50 Ur Culture Indicated? No/not indicated 10/14/21 15:50 SARS-CoV-2 (PCR) Negative (NEGATIVE) 10/14/21 10:20 SARS-CoV-2 (PCR) Cancelled 10/14/21 10:20 Plan (1) Flank pain: Status: Acute (2) Impaired ambulation: Status: Acute (3) Prostate cancer: Status: Acute (4) HTN (hypertension): Status: Acute Qualifiers: Hypertension type: primary hypertension Qualified Code(s): I10 - Essential (primary) hypertension (5) Type 2 diabetes mellitus: Status: Acute Qualifiers: Diabetes mellitus complication status: without complication Diabetes mellitus rn long term care insulin use: with residential use Qualified Code(s): E11.9 - Type 2 diabetes mellitus without complications; Z79.4 - half-way (current) use of insulin (6) Multilevel degenerative disc disease: Status: Acute (7) Hypothyroidism: Status: Acute Qualifiers: Hypothyroidism type: acquired Qualified Code(s): E03.9 - Hypothyroi dism, unspecified
[2021-10-16] MEDS: CRESTOR TAB 10 MG PO SCH ×2 (21:02→21:12)
[2021-10-16] MEDS: FLOMAX PO SCH (21:03)
[2021-10-16] MEDS: ZANAFLEX PO PRN (23:50)
[2021-10-17] MEDS: FLEXERIL TAB 10 MG PO SCH ×4 (01:01→19:06)
[2021-10-17 04:49] LABS: BASOPHILS % (AUTO) 0.4 % (0.2-1.0); HEMATOCRIT 34.5 % (42.0-54.0); HEMOGLOBIN 11.6 g/dL (13.5-18.0); LYMPHOCYTES # (AUTO) 0.9 X10^3/uL (1.3-2.9); LYMPHOCYTES % (AUTO) 8.5 % (21.0-51.0); MEAN CORPUSCULAR HGB CONC 33.7 g/dL (33.0-35.0); MEAN CORPUSCULAR VOLUME 86.2 fL (80.0-100.0); MONOCYTES # (AUTO) 0.3 x10^3/uL (0.3-0.8); MONOCYTES % (AUTO) 3.3 % (0.0-13.0); NEUTROPHILS # (AUTO) 8.8 x10^3/uL (2.2-4.8); NEUTROPHILS % (AUTO) 87.8 % (42.0-75.0); RED CELL DISTRIBUTION WIDTH 13.8 % (11.6-16.5)
[2021-10-17 04:51] LABS: BLOOD UREA NITROGEN 23 mg/dL (7-18); CALCIUM 8.7 mg/dL (8.5-10.1); CARBON DIOXIDE 29.1 mmol/L (21-32); CHLORIDE 98 mmol/L (98-107); COR NA(FOR HYPERGLY) 141 mmol/L (136-145); CREATININE 0.91 mg/dL (0.70-1.30); SODIUM 134 mmol/L (136-145); eGFR NON BLACK RACES > 60 (>60)
[2021-10-17] MEDS: SYNTHROID 100 mcg TAB PO SCH (05:31)
[2021-10-17] MEDS: NEURONTIN CAP 300 MG PO SCH ×3 (05:44→21:06)
[2021-10-17] MEDS: NovoLIN R (or HumuLIN R) SC PRN ×4 (05:51→21:09)
[2021-10-17] MEDS ORDERED: LANTUS SC SCH (09:00)
[2021-10-17] MEDS: COREG TAB 12.5 MG PO SCH ×2 (09:01→21:06)
[2021-10-17] MEDS: LOVENOX INJ 40 MG SYR SC SCH (09:04)
[2021-10-17] MEDS: PROCARDIA XL PO SCH (09:04)
[2021-10-17] MEDS: SOLU-Medrol 125 MG VIAL IVP SCH ×2 (09:07→21:07)
[2021-10-17] MEDS: METFORMIN PO SCH (09:20)
[2021-10-17] MEDS: SAXAGLIPTIN PO SCH (09:20)
[2021-10-17] MEDS: [UNRECOGNIZED DRUG - OTHER] PO SCH (09:20)
[2021-10-17] MEDS: GLUCOPHAGE XR 24-HR PO SCH (09:22)
--- NOTE | 2021-10-17 10:29 | PCM.PROG ---
Progress Note Progress Note for Day of Date of Exam: 10/17/21 Subjective Subjective: Patient seen at bedside, no acute events overnight. He feels slightly better this morning. He was able to sit on the side of the bed yesterday for meals. He has not tried to stand up yet. Right hip XR was normal. His BP and FSBG have been elevated. Labs/imaging reviewed Plan: Will taper steroids, continue pain with control with with Dilaudid, gabapentin and tizanidine. Patient does have a back stimulator so unable to do MRI. Will order Lumbar CT. PT/OT as tolerated. Increase lantus to 50 units, continue SSI. Resume Kombiglyze, add glipizide. Monitor AM labs/imaging. Past Medical Family Social History Past Med/Fam/Surg Hx: No changes since H&P Allergies: Allergies No Known Drug Allergies Allergy (Verified 03/03/21 07:37) Review of Systems ROS: No change since H&P Vital Signs and I&O's Vital Signs: Temperature 97.7 F Pulse Rate [Left Brachial] 57 Pulse Rate [Bilateral Radial] 60 Respiratory Rate 18 Blood Pressure [Left Arm] 173/80 Blood Pressure [Right Arm] 177/72 Blood Pressure 184/86 O2 Sat by Pulse Oximetry 96 Intake and Output: Intake & Output 10/14/21 10/15/21 10/16/21 10/17/21 23:59 23:59 23:59 23:59 Intake Total 860 / 860 2979 / 2979 3373 / 3373 969 / 969 Output Total 1200 / 1200 3660 / 3660 2125 / 2125 600 / 600 Balance -340 / -340 -681 / -681 1248 / 1248 369 / 369 Physical Exam Oriented: Normal Eyes: Normal Ear: Normal Nose: Normal Throat: Normal Respiratory: Normal Cardiovascular: Normal Auscultation: Bowel Sounds: Normal Tenderness: Normal and Other (right flank area mild tenderness, soft ) Skin: Normal Musculoskeletal: Right (right lower back/flank tenderness, no bruising or signs of trauma. Focal tenderness. ) and Motor Deficit Psychiatric: Normal Mood Description: Calm Affect: Normal Speech Pattern: Clear and Appropriate Laboratory and Diagnostics Result Diagrams: 10/17/21 03:47 10/17/21 03:47 Labs: Laboratory WBC 10.0 X10^3/uL (3.6-10.0) 10/17/21 03:47 RBC 4.00 X10^6/uL (4.7-6.0) L 10/17/21 03:47 Hgb 11.6 g/dL (13.5-18.0) L 10/17/21 03:47 Hct 34.5 % (42.0-54.0) L 10/17/21 03:47 MCV 86.2 fL (80.0-100.0) 10/17/21 03:47 MCH 29.0 pg (27.0-34.0) 10/17/21 03:47 MCHC 33.7 g/dL (33.0-35.0) 10/17/21 03:47 RDW 13.8 % (11.6-16.5) 10/17/21 03:47 Plt Count 184 X10^3/uL (150.0-450.0) 10/17/21 03:47 MPV 8.0 fL (7.4-11.0) 10/17/21 03:47 Neut % (Auto) 87.8 % (42.0-75.0) H 10/17/21 03:47 Lymph % (Auto) 8.5 % (21.0-51.0) L 10/17/21 03:47 [place] % (Auto) 3.3 % (0.0-13.0) 10/17/21 03:47 Eos % (Auto) 0.0 % (0.9-2.9) L 10/17/21 03:47 Baso % (Auto) 0.4 % (0.2-1.0) 10/17/21 03:47 Neut # (Auto) 8.8 x10^3/uL (2.2-4.8) H 10/17/21 03:47 Lymph # (Auto) 0.9 X10^3/uL (1.3-2.9) L 10/17/21 03:47 [place] # (Auto) 0.3 x10^3/uL (0.3-0.8) 10/17/21 03:47 Eos # (Auto) 0.0 x10^3/uL (0.0-0.2) 10/17/21 03:47 Baso # (Auto) 0.0 X10^3/uL (0.0-0.1) 10/17/21 03:47 Absolute Nucleated RBC 0.0 /100WBC 10/17/21 03:47 Sodium 134 mmol/L (136-145) L 10/17/21 03:47 Corrected Sodium 141 mmol/L (136-145) 10/17/21 03:47 Potassium 4.4 mmol/L (3.5-5.1) 10/17/21 03:47 Chloride 98 mmol/L (98-107) 10/17/21 03:47 Carbon Dioxide 29.1 mmol/L (21-32) 10/17/21 03:47 BUN 23 mg/dL (7-18) H 10/17/21 03:47 Creatinine 0.91 mg/dL (0.70-1.30) 10/17/21 03:47 Est GFR (MDRD) Af Amer > 60 (>60) 10/17/21 03:47 Est GFR (MDRD) Non-Af > 60 (>60) 10/17/21 03:47 Glucose 379 mg/dL (65-99) H 10/17/21 03:47 POC Glucose (mg/dL) 373 mg/dL (65-99) H 10/16/21 20:07 Calcium 8.7 mg/dL (8.5-10.1) 10/17/21 03:47 Corrected Calcium TNP 10/14/21 10:21 Total Bilirubin 0.30 mg/dL (0.2-1.0) 10/14/21 10:21 AST 11 Units/L (15-37) L 10/14/21 10:21 ALT 15 Units/L (12-78) 10/14/21 10:21 Alkaline Phosphatase 84 Units/L (46-116) 10/14/21 10:21 Total Protein 7.1 g/dL (6.4-8.2) 10/14/21 10:21 Albumin 3.4 g/dL (3.4-5.0) 10/14/21 10:21 Globulin 3.7 g/dL (2.5-4.5) 10/14/21 10:21 Albumin/Globulin Ratio 0.9 Ratio (1.1-2.1) L 10/14/21 10:21 Total PSA 0.16 ng/mL (0.13-4.0) 10/14/21 10:21 Specimen Type Clean catch urine 10/14/21 15:50 Urine Color [place] (YELLOW) 10/14/21 15:50 Urine Appearance Clear (CLEAR) 10/14/21 15:50 Urine pH 5.0 (5.0 - 8.0) 10/14/21 15:50 Ur Specific [place] 1.025 (1.000-1.030) 10/14/21 15:50 Urine Protein 2+ (NEGATIVE) 10/14/21 15:50 Urine Glucose (UA) Negative (NEGATIVE) 10/14/21 15:50 Urine Ketones Negative (NEGATIVE) 10/14/21 15:50 Urine Blood Negative (NEGATIVE) 10/14/21 15:50 Urine Nitrite Negative (NEGATIVE) 10/14/21 15:50 Urine Bilirubin 2+ (NEGATIVE) 10/14/21 15:50 Urine Urobilinogen 1+ (NORMAL) 10/14/21 15:50 Ur Leukocyte Esterase Negative (NEGATIVE) 10/14/21 15:50 Urine RBC None seen /HPF (0-3) 10/14/21 15:50 Urine WBC 0-2 /HPF (0-5) 10/14/21 15:50 Ur Squamous Epith Cells Rare /HPF (NEGATIVE) 10/14/21 15:50 Amorphous Sediment 1+ /HPF (NEGATIVE) 10/14/21 15:50 Urine Bacteria Trace /HPF (NEGATIVE) 10/14/21 15:50 Hyaline Casts Few /LPF (NEGATIVE) 10/14/21 15:50 Urine Mucus Few /HPF (NEGATIVE) 10/14/21 15:50 Urine Sperm Rare /HPF (NEGATIVE) 10/14/21 15:50 Ur Culture Indicated? No/not indicated 10/14/21 15:50 SARS-CoV-2 (PCR) Negative (NEGATIVE) 10/14/21 10:20 SARS-CoV-2 (PCR) Cancelled 10/14/21 10:20 Plan (1) Lumbar arthropathy: Status: Acute (2) Flank pain: Status: Acute (3) Impaired ambulation: Status: Acute (4) Prostate cancer: Status: Acute (5) HTN (hypertension): Status: Acute Qualifiers: Hypertension type: primary hypertension Qualified Code(s): I10 - Essential (primary) hypertension (6) Type 2 diabetes mellitus: Status: Acute Qualifiers: Diabetes mellitus complication status: without complication Diabetes mellitus long filler cigar roller machine insulin use: with group home use Qualified Code(s): E11.9 - Type 2 diabetes mellitus without complications; Z79.4 - group home (current) use of insulin (7) Multilevel degenerative disc disease: Status: Acute (8) Hypothyroidism: Status: Acute Qualifiers: Hypothyroidism type: acquired Qualified Code(s): E03.9 - Hypothyroidism, unspecified
[2021-10-17] MEDS: NS 1,000 ML IV 1,000 ML IV SCH (12:11)
[2021-10-17] MEDS: DILAUDID INJ IVP PRN (19:12)
[2021-10-17] MEDS: SNACK - Diabetic Appropriate PO SCH (21:05)
[2021-10-17] MEDS: CRESTOR TAB 10 MG PO SCH (21:06)
[2021-10-17] MEDS: FLOMAX PO SCH (21:06)
[2021-10-17] MEDS: ZANAFLEX PO PRN (23:57)
[2021-10-18] MEDS ORDERED: CATAPRES TAB 0.1 MG PO ONE (01:14)
[2021-10-18] MEDS: FLEXERIL TAB 10 MG PO SCH ×4 (01:36→19:59)
[2021-10-18] MEDS: NS 1,000 ML IV 1,000 ML IV SCH (02:24)
[2021-10-18 04:26] LABS: BASOPHILS % (AUTO) 0.2 % (0.2-1.0); HEMATOCRIT 36.2 % (42.0-54.0); HEMOGLOBIN 12.2 g/dL (13.5-18.0); LYMPHOCYTES # (AUTO) 1.1 X10^3/uL (1.3-2.9); LYMPHOCYTES % (AUTO) 11.4 % (21.0-51.0); MEAN CORPUSCULAR HEMOGLOBIN 29.1 pg (27.0-34.0); MEAN CORPUSCULAR HGB CONC 33.8 g/dL (33.0-35.0); MONOCYTES # (AUTO) 0.4 x10^3/uL (0.3-0.8); MONOCYTES % (AUTO) 3.7 % (0.0-13.0); NEUTROPHILS # (AUTO) 8.4 x10^3/uL (2.2-4.8); NEUTROPHILS % (AUTO) 84.7 % (42.0-75.0); RED BLOOD COUNT 4.21 X10^6/uL (4.7-6.0); RED CELL DISTRIBUTION WIDTH 14.1 % (11.6-16.5)
[2021-10-18 04:30] LABS: BLOOD UREA NITROGEN 20 mg/dL (7-18); CALCIUM 9.1 mg/dL (8.5-10.1); CARBON DIOXIDE 29.2 mmol/L (21-32); CHLORIDE 100 mmol/L (98-107); COR NA(FOR HYPERGLY) 143 mmol/L (136-145); CREATININE 0.99 mg/dL (0.70-1.30); SODIUM 136 mmol/L (136-145); eGFR NON BLACK RACES > 60 (>60)
[2021-10-18] MEDS ORDERED: APRESOLINE INJ 20 MG VIAL IVP ONE ×2 (04:38→12:53)
[2021-10-18] MEDS: NEURONTIN CAP 300 MG PO SCH ×3 (05:09→21:23)
[2021-10-18] MEDS: SYNTHROID 100 mcg TAB PO SCH (06:02)
[2021-10-18] MEDS: NovoLIN R (or HumuLIN R) SC PRN ×4 (06:03→21:22)
[2021-10-18] MEDS: GLUCOTROL XL 24-HR PO SCH (06:03)
[2021-10-18] MEDS: SOLU-Medrol 125 MG VIAL IVP SCH (09:00)
[2021-10-18] MEDS ORDERED: LANTUS SC SCH ×2 (09:00)
[2021-10-18] MEDS: PROCARDIA XL PO SCH (09:00)
[2021-10-18] MEDS: COREG TAB 12.5 MG PO SCH ×2 (09:00→21:21)
[2021-10-18] MEDS: LOVENOX INJ 40 MG SYR SC SCH (09:02)
[2021-10-18] MEDS: SAXAGLIPTIN PO SCH (09:02)
[2021-10-18] MEDS: [UNRECOGNIZED DRUG - OTHER] PO SCH (09:02)
[2021-10-18] MEDS: METFORMIN PO SCH (09:02)
--- NOTE | 2021-10-18 12:49 | PCM.PROG ---
Progress Note Progress Note for Day of Date of Exam: 10/18/21 Subjective Subjective: Patient seen at bedside, patient's BP was elevated and he was given clonidine initially but then continued to remain elevated. He was then given hydralazine 10 mg IV once. It was in the 180s this morning. Patient states his pain is a lot better. He has been ambulating to the bathroom. He is not able to stand up for a long time but has been sitting on the side of the bed. Labs reviewed Plan: patient is scheduled for MRI lumbar this morning. His back stimulator is compatible with MRI, checked by radiology. Will DC steroids after morning dose. Increase Lantus to 60 units. Continue PT/OT as tolerated. Continue pain control, gabapentin and tizanidine. Continue hydralazine prn for SBP > 160. Follow MRI results. Past Medical Family Social History Past Med/Fam/Surg Hx: No changes since H&P Allergies: Allergies No Known Drug Allergies Allergy (Verified 03/03/21 07:37) Review of Systems ROS: No change since H&P Vital Signs and I&O's Vital Signs: Temperature 97.8 F Pulse Rate [Left Brachial] 56 Pulse Rate [Bilateral Radial] 60 Respiratory Rate 20 Blood Pressure [Left Arm] 182/83 Blood Pressure [Right Arm] 177/72 Blood Pressure 184/86 O2 Sat by Pulse Oximetry 95 Intake and Output: Intake & Output 10/15/21 10/16/21 10/17/21 10/18/21 23:59 23:59 23:59 23:59 Intake Total 2979 / 2979 3373 / 3373 2529 / 2529 1225 / 1225 Output Total 3660 / 3660 2125 / 2125 2600 / 2600 2049 / 2049 Balance -681 / -681 1248 / 1248 -71 / -71 -825 / -825 Physical Exam Oriented: Normal Eyes: Normal Ear: Normal Nose: Normal Throat: Normal Respiratory: Normal Cardiovascular: Normal Auscultation: Bowel Sounds: Normal Tenderness: Normal and Other (right flank area mild tenderness, soft ) Skin: Normal Musculoskeletal: Right (right lower back/flank tenderness, no bruising or signs of trauma. Focal tenderness. ) Psychiatric: Normal Mood Description: Calm Affect: Normal Speech Pattern: Clear and Appropriate Laboratory and Diagnostics Result Diagrams: 10/18/21 03:38 10/18/21 03:38 Labs: Laboratory WBC 10.0 X10^3/uL (3.6-10.0) 10/18/21 03:38 RBC 4.21 X10^6/uL (4.7-6.0) L 10/18/21 03:38 Hgb 12.2 g/dL (13.5-18.0) L 10/18/21 03:38 Hct 36.2 % (42.0-54.0) L 10/18/21 03:38 MCV 86.0 fL (80.0-100.0) 10/18/21 03:38 MCH 29.1 pg (27.0-34.0) 10/18/21 03:38 MCHC 33.8 g/dL (33.0-35.0) 10/18/21 03:38 RDW 14.1 % (11.6-16.5) 10/18/21 03:38 Plt Count 190 X10^3/uL (150.0-450.0) 10/18/21 03:38 MPV 8.0 fL (7.4-11.0) 10/18/21 03:38 Neut % (Auto) 84.7 % (42.0-75.0) H 10/18/21 03:38 Lymph % (Auto) 11.4 % (21.0-51.0) L 10/18/21 03:38 [place] % (Auto) 3.7 % (0.0-13.0) 10/18/21 03:38 Eos % (Auto) 0.0 % (0.9-2.9) L 10/18/21 03:38 Baso % (Auto) 0.2 % (0.2-1.0) 10/18/21 03:38 Neut # (Auto) 8.4 x10^3/uL (2.2-4.8) H 10/18/21 03:38 Lymph # (Auto) 1.1 X10^3/uL (1.3-2.9) L 10/18/21 03:38 [place] # (Auto) 0.4 x10^3/uL (0.3-0.8) 10/18/21 03:38 Eos # (Auto) 0.0 x10^3/uL (0.0-0.2) 10/18/21 03:38 Baso # (Auto) 0.0 X10^3/uL (0.0-0.1) 10/18/21 03:38 Absolute Nucleated RBC 0.0 /100WBC 10/18/21 03:38 Sodium 136 mmol/L (136-145) 10/18/21 03:38 Corrected Sodium 143 mmol/L (136-145) 10/18/21 03:38 Potassium 5.0 mmol/L (3.5-5.1) 10/18/21 03:38 Chloride 100 mmol/L (98-107) 10/18/21 03:38 Carbon Dioxide 29.2 mmol/L (21-32) 10/18/21 03:38 BUN 20 mg/dL (7-18) H 10/18/21 03:38 Creatinine 0.99 mg/dL (0.70-1.30) 10/18/21 03:38 Est GFR (MDRD) Af Amer > 60 (>60) 10/18/21 03:38 Est GFR (MDRD) Non-Af > 60 (>60) 10/18/21 03:38 Glucose 373 mg/dL (65-99) H 10/18/21 03:38 POC Glucose (mg/dL) 366 mg/dL (65-99) H 10/18/21 11:25 Calcium 9.1 mg/dL (8.5-10.1) 10/18/21 03:38 Corrected Calcium TNP 10/14/21 10:21 Total Bilirubin 0.30 mg/dL (0.2-1.0) 10/14/21 10:21 AST 11 Units/L (15-37) L 10/14/21 10:21 ALT 15 Units/L (12-78) 10/14/21 10:21 Alkaline Phosphatase 84 Units/L (46-116) 10/14/21 10:21 Total Protein 7.1 g/dL (6.4-8.2) 10/14/21 10:21 Albumin 3.4 g/dL (3.4-5.0) 10/14/21 10:21 Globulin 3.7 g/dL (2.5-4.5) 10/14/21 10:21 Albumin/Globulin Ratio 0.9 Ratio (1.1-2.1) L 10/14/21 10:21 Total PSA 0.16 ng/mL (0.13-4.0) 10/14/21 10:21 Specimen Type Clean catch urine 10/14/21 15:50 Urine Color [place] (YELLOW) 10/14/21 15:50 Urine Appearance Clear (CLEAR) 10/14/21 15:50 Urine pH 5.0 (5.0 - 8.0) 10/14/21 15:50 Ur Specific [place] 1.025 (1.000-1.030) 10/14/21 15:50 Urine Protein 2+ (NEGATIVE) 10/14/21 15:50 Urine Glucose (UA) Negative (NEGATIVE) 10/14/21 15:50 Urine Ketones Negative (NEGATIVE) 10/14/21 15:50 Urine Blood Negative (NEGATIVE) 10/14/21 15:50 Urine Nitrite Negative (NEGATIVE) 10/14/21 15:50 Urine Bilirubin 2+ (NEGATIVE) 10/14/21 15:50 Urine Urobilinogen 1+ (NORMAL) 10/14/21 15:50 Ur Leukocyte Esterase Negative (NEGATIVE) 10/14/21 15:50 Urine RBC None seen /HPF (0-3) 10/14/21 15:50 Urine WBC 0-2 /HPF (0-5) 10/14/21 15:50 Ur Squamous Epith Cells Rare /HPF (NEGATIVE) 10/14/21 15:50 Amorphous Sediment 1+ /HPF (NEGATIVE) 10/14/21 15:50 Urine Bacteria Trace /HPF (NEGATIVE) 10/14/21 15:50 Hyaline Casts Few /LPF (NEGATIVE) 10/14/21 15:50 Urine Mucus Few /HPF (NEGATIVE) 10/14/21 15:50 Urine Sperm Rare /HPF (NEGATIVE) 10/14/21 15:50 Ur Culture Indicated? No/not indicated 10/14/21 15:50 SARS-CoV-2 (PCR) Negative (NEGATIVE) 10/14/21 10:20 SARS-CoV-2 (PCR) Cancelled 10/14/21 10:20 Plan (1) Lumbar arthropathy: Status: Acute (2) Flank pain: Status: Acute (3) Impaired ambulation: Status: Acute (4) Prostate cancer: Status: Acute (5) HTN (hypertension): Status: Acute Qualifiers: Hypertension type: primary hypertension Qualified Code(s): I10 - Essential (primary) hypertension (6) Type 2 diabetes mellitus: Status: Acute Qualifiers: Diabetes mellitus complication status: without complication Diabetes mellitus senior living insulin use: with medical terminologist use Qualified Code(s): E11.9 - Type 2 diabetes mellitus without complications; Z79.4 - half-way (current) use of insulin (7) Multilevel degenerative disc disease: Status: Acute (8) Hypothyroidism: Status: Acute Qualifiers: Hypothyroidism type: acquired Qualified Code(s): E03.9 - Hypothyroidism, unspecified
[2021-10-18] MEDS ORDERED: DILAUDID INJ IVP PRN (12:54)
[2021-10-18] MEDS ORDERED: APRESOLINE INJ 20 MG VIAL ONE (12:54)
--- NOTE | 2021-10-18 13:15 | DR.PROGNOT ---
Hospital Progress Notes - Progress Note for Day of: Progress Note Date: 10/18/21 - Chief Complaint Chief Complaint: pain is better controlled .. able to aqmbulate for short distance .. BS and HTN were difficult to control because of the steroids .. awaiting MRI .. - Past Medical Family Social History Past Med/Fam/Surg Hx: No changes since H&P Allergies: Allergies No Known Drug Allergies Allergy (Verified 03/03/21 07:37) - Review Of Systems ROS: No change since H&P - Vital Signs Vital Signs: Temperature 97.6 F Pulse Rate [Left Brachial] 56 Pulse Rate [Bilateral Radial] 60 Respiratory Rate 18 Blood Pressure [Left Arm] 187/85 Blood Pressure [Right Arm] 177/72 Blood Pressure 184/86 O2 Sat by Pulse Oximetry 96 - Physical Exam Oriented: Normal Eyes: Normal Ear: Normal Nose: Normal Throat: Normal Respiratory: Normal Cardiovascular: Normal GI:Auscultation: Normal GI:Palpation: Normal GI: Tenderness: Normal, Other (right flank area mild tenderness, soft) Skin: Normal Musculoskeletal: Right (right lower back/flank tenderness, no bruising or signs of trauma. Focal tenderness.) Psychiatric: Normal Mood Description: Calm Affect: Normal Speech Pattern: Clear, Appropriate - Laboratory and Diagnostics Result Diagrams: 10/18/21 03:38 10/18/21 03:38 Labs: Laboratory WBC 10.0 X10^3/uL (3.6-10.0) 10/18/21 03:38 RBC 4.21 X10^6/uL (4.7-6.0) L 10/18/21 03:38 Hgb 12.2 g/dL (13.5-18.0) L 10/18/21 03:38 Hct 36.2 % (42.0-54.0) L 10/18/21 03:38 MCV 86.0 fL (80.0-100.0) 10/18/21 03:38 MCH 29.1 pg (27.0-34.0) 10/18/21 03:38 MCHC 33.8 g/dL (33.0-35.0) 10/18/21 03:38 RDW 14.1 % (11.6-16.5) 10/18/21 03:38 Plt Count 190 X10^3/uL (150.0-450.0) 10/18/21 03:38 MPV 8.0 fL (7.4-11.0) 10/18/21 03:38 Neut % (Auto) 84.7 % (42.0-75.0) H 10/18/21 03:38 Lymph % (Auto) 11.4 % (21.0-51.0) L 10/18/21 03:38 [place] % (Auto) 3.7 % (0.0-13.0) 10/18/21 03:38 Eos % (Auto) 0.0 % (0.9-2.9) L 10/18/21 03:38 Baso % (Auto) 0.2 % (0.2-1.0) 10/18/21 03:38 Neut # (Auto) 8.4 x10^3/uL (2.2-4.8) H 10/18/21 03:38 Lymph # (Auto) 1.1 X10^3/uL (1.3-2.9) L 10/18/21 03:38 [place] # (Auto) 0.4 x10^3/uL (0.3-0.8) 10/18/21 03:38 Eos # (Auto) 0.0 x10^3/uL (0.0-0.2) 10/18/21 03:38 Baso # (Auto) 0.0 X10^3/uL (0.0-0.1) 10/18/21 03:38 Absolute Nucleated RBC 0.0 /100WBC 10/18/21 03:38 Sodium 136 mmol/L (136-145) 10/18/21 03:38 Corrected Sodium 143 mmol/L (136-145) 10/18/21 03:38 Potassium 5.0 mmol/L (3.5-5.1) 10/18/21 03:38 Chloride 100 mmol/L (98-107) 10/18/21 03:38 Carbon Dioxide 29.2 mmol/L (21-32) 10/18/21 03:38 BUN 20 mg/dL (7-18) H 10/18/21 03:38 Creatinine 0.99 mg/dL (0.70-1.30) 10/18/21 03:38 Est GFR (MDRD) Af Amer > 60 (>60) 10/18/21 03:38 Est GFR (MDRD) Non-Af > 60 (>60) 10/18/21 03:38 Glucose 373 mg/dL (65-99) H 10/18/21 03:38 POC Glucose (mg/dL) 366 mg/dL (65-99) H 10/18/21 11:25 Calcium 9.1 mg/dL (8.5-10.1) 10/18/21 03:38 Corrected Calcium TNP 10/14/21 10:21 Total Bilirubin 0.30 mg/dL (0.2-1.0) 10/14/21 10:21 AST 11 Units/L (15-37) L 10/14/21 10:21 ALT 15 Units/L (12-78) 10/14/21 10:21 Alkaline Phosphatase 84 Units/L (46-116) 10/14/21 10:21 Total Protein 7.1 g/dL (6.4-8.2) 10/14/21 10:21 Albumin 3.4 g/dL (3.4-5.0) 10/14/21 10:21 Globulin 3.7 g/dL (2.5-4.5) 10/14/21 10:21 Albumin/Globulin Ratio 0.9 Ratio (1.1-2.1) L 10/14/21 10:21 Total PSA 0.16 ng/mL (0.13-4.0) 10/14/21 10:21 Specimen Type Clean catch urine 10/14/21 15:50 Urine Color Sus[place] (YELLOW) 10/14/21 15:50 Urine Appearance Clear (CLEAR) 10/14/21 15:50 Urine pH 5.0 (5.0 - 8.0) 10/14/21 15:50 Ur Specific [place] 1.025 (1.000-1.030) 10/14/21 15:50 Urine Protein 2+ (NEGATIVE) 10/14/21 15:50 Urine Glucose (UA) Negative (NEGATIVE) 10/14/21 15:50 Urine Ketones Negative (NEGATIVE) 10/14/21 15:50 Urine Blood Negative (NEGATIVE) 10/14/21 15:50 Urine Nitrite Negative (NEGATIVE) 10/14/21 15:50 Urine Bilirubin 2+ (NEGATIVE) 10/14/21 15:50 Urine Urobilinogen 1+ (NORMAL) 10/14/21 15:50 Ur Leukocyte Esterase Negative (NEGATIVE) 10/14/21 15:50 Urine RBC None seen /HPF (0-3) 10/14/21 15:50 Urine WBC 0-2 /HPF (0-5) 10/14/21 15:50 Ur Squamous Epith Cells Rare /HPF (NEGATIVE) 10/14/21 15:50 Amorphous Sediment 1+ /HPF (NEGATIVE) 10/14/21 15:50 Urine Bacteria Trace /HPF (NEGATIVE) 10/14/21 15:50 Hyaline Casts Few /LPF (NEGATIVE) 10/14/21 15:50 Urine Mucus Few /HPF (NEGATIVE) 10/14/21 15:50 Urine Sperm Rare /HPF (NEGATIVE) 10/14/21 15:50 Ur Culture Indicated? No/not indicated 10/14/21 15:50 SARS-CoV-2 (PCR) Negative (NEGATIVE) 10/14/21 10:20 SARS-CoV-2 (PCR) Cancelled 10/14/21 10:20 - Assessment and Plan 1: severe lumbar and flank pain .. disc disease and radiculopathy . arthritis lower back . RT inguinal hernia .. for MRI today . control of DM and HTN .
[2021-10-18] MEDS: ZESTRIL TAB 40 MG PO SCH (17:21)
[2021-10-18] MEDS: FLOMAX PO SCH (21:21)
[2021-10-18] MEDS: SNACK - Diabetic Appropriate PO SCH (21:21)
[2021-10-18] MEDS: CRESTOR TAB 10 MG PO SCH (21:21)
[2021-10-19] MEDS: FLEXERIL TAB 10 MG PO SCH ×2 (01:29→06:51)
[2021-10-19 04:34] LABS: BASOPHILS % (AUTO) 0.2 % (0.2-1.0); EOSINOPHILS % (AUTO) 0.3 % (0.9-2.9); HEMATOCRIT 35.1 % (42.0-54.0); HEMOGLOBIN 11.9 g/dL (13.5-18.0); LYMPHOCYTES # (AUTO) 3.3 X10^3/uL (1.3-2.9); LYMPHOCYTES % (AUTO) 34.6 % (21.0-51.0); MEAN CORPUSCULAR HEMOGLOBIN 28.8 pg (27.0-34.0); MEAN CORPUSCULAR VOLUME 84.9 fL (80.0-100.0); MEAN PLATELET VOLUME 7.9 fL (7.4-11.0); MONOCYTES # (AUTO) 0.8 x10^3/uL (0.3-0.8); MONOCYTES % (AUTO) 8.7 % (0.0-13.0); NEUTROPHILS # (AUTO) 5.4 x10^3/uL (2.2-4.8); NEUTROPHILS % (AUTO) 56.2 % (42.0-75.0); RED BLOOD COUNT 4.14 X10^6/uL (4.7-6.0); RED CELL DISTRIBUTION WIDTH 13.9 % (11.6-16.5); WHITE BLOOD COUNT 9.6 X10^3/uL (3.6-10.0)
[2021-10-19 04:52] LABS: ALANINE AMINOTRANSFERASE 15 Units/L (12-78); ALBUMIN 2.7 g/dL (3.4-5.0); ALKALINE PHOSPHATASE 70 Units/L (46-116); ASPARTATE AMINO TRANSFERASE 8 Units/L (15-37); BLOOD UREA NITROGEN 25 mg/dL (7-18); CALCIUM 8.8 mg/dL (8.5-10.1); CARBON DIOXIDE 29.3 mmol/L (21-32); CHLORIDE 99 mmol/L (98-107); COR CA(FOR HYPOALB) 9.8 mg/dL (8.5-10.1); COR NA(FOR HYPERGLY) 137 mmol/L (136-145); CREATININE 0.95 mg/dL (0.70-1.30); SODIUM 133 mmol/L (136-145); TOTAL PROTEIN 5.8 g/dL (6.4-8.2); eGFR NON BLACK RACES > 60 (>60)
[2021-10-19] MEDS: NEURONTIN CAP 300 MG PO SCH (06:50)
[2021-10-19] MEDS: SYNTHROID 100 mcg TAB PO SCH (06:51)
[2021-10-19] MEDS: GLUCOTROL XL 24-HR PO SCH (06:51)
--- NOTE | 2021-10-19 08:07 | MRI ---
HISTORYsevere back pain, prostate caSTUDYMRI L SPINE W/O IV CONTRASTCOMPARISONX-ray 10/14/[address] abdomen 10/15/2021TECHNIQUEMultiplanar multisequence MRI of the lumbar spine was obtained without IV contrast. Patient has an MRI safe neurostimulator device. Device was placed in MRI compatible state prior to imaging with adequate charge present. Patient tolerated the exam well.FINDINGSThe conus terminates at the L1-2 level. There is mild retrolisthesis of L2 on L3 likely associated with the posterior fusion at L3-5. Schmorl's node formation is seen in the inferior endplates of L2 and L1. No compression fracture is seen. Probable Modic degenerative endplate changes are present at L3-4 with vacuum phenomena present at L3-4 and L4-5. No suggestion of metastatic disease is seen. Artifact from the fusion hardware and stimulator lead slightly limit the study.T12 -- L1: Mild posterior element hypertrophy causes mild central canal stenosis without contact of the conus.L1 -- L2: Mild posterior element hypertrophy cause mild thecal sac effacement.L2 -- L3: The spondylolisthesis and posterior osteophytes, along with mild posterior element hypertrophy, cause prominent thecal sac effacement and possible compression. There is prominent lateral recess stenosis and possible compression of the L3 nerve roots, also. Moderate neural foraminal narrowing is seen.L3 -- L4: Mild posterior element hypertrophy is seen moderate posterior osteophytes. There is prominent thecal sac effacement and possible compression. Mild lateral recess stenosis is seen. Prominent neural foraminal narrowing is seen bilaterally and there could be compression of the exiting left L3 nerve root.L4 -- L5: Mild posterior element hypertrophy is seen with moderate posterior osteophytes. Prominent left neural foraminal narrowing is seen with contact and possible compression of the left L4 nerve root. Moderate right neural foraminal narrowing is seen. Mild thecal sac effacement is seen. Prominent left lateral recess stenosis is seen with possible compression of the left L5 nerve root.L5 -- S1:Minimal posterior element hypertrophy is seen with small posterior osteophytes. Prominent bilateral neural foraminal narrowing is seen with contact of the exiting L5 nerve roots. There is probable compression of the left L5 nerve root. No central canal or lateral recess stenosis is seen.IMPRESSIONPosterior osteophytes and posterior element hypertrophy cause possible thecal sac compression at L2-3 and L3-4. No disc herniations are seen. Other areas of significant lateral recess and neural foraminal narrowing are present as described above.Electronically signed by: Hunter Markham (Oct 19, 2021 08:05:37)
--- NOTE | 2021-10-19 08:52 | W.DIS.FURT ---
Summary of Discharge Discharge Summary of Date Date of Exam: 10/19/21 Admission Date Date of Admission: 10/14/21 Admission Diagnosis Hospital Course: Mr Rodarte is a 70 y/o male with a PMH of prostate cancer s/p radiation, carcinoid tumor, type 2 diabetes, HTN and HLD presented with worsening right flank pain. He said it started 2 days ago and has been worsening. He came to see Dr Bourgeois this morning for a trigger point injection but he could hardly walk and was in severe pain so he was sent for admission. He states it started suddenly 2 days ago, mostly right side flank area. He states it hurts when he tries to walk. Denies any falls or injuries. Denies heavy lifting or any trauma. He saw Dr De La Rosa (urology) 2 weeks ago. He was suppose to have CTAP done to follow up for his prostate cancer but he could not make his appointment due to severe pain. He denies numbness or tingling. He did not have any bone mets from the cancer. Denies urinary symptoms, denies hematuria. Patient was admitted for pain control and further management. He had lumbar XR which showed multilevel DDD. Right hip XR was negative. CTAP was also done to rule out any acute process, it did not show any acute abnormalities. Patient continued to have pain with ambulation. He was also started on IV steroids, muscle relaxers and gabapentin. PT/OT was consulted. Patient's pain gradually improved and he was ambulating to the bathroom. His BP and glucose levels were elevated due to steroids. He did receive clonidine and IV hydralazine prn. He also had lumbar MRI which showed multi-level severe DDD with nerve root compression. Patient sees Dr Humphrey and had a back stimulator placed less than a year ago. His pain was better controlled and he was stable for discharge. He was started on glipizide and metformin was stopped. He will f/u with Dr. Humphrey and PCP as scheduled. Vital Signs: Vital Signs (72 hours) 10/16/21 12:00 10/16/21 14:00 10/16/21 14:30 Temperature 98.4 F Pulse Rate [Bilateral Radial] Pulse Rate [Left Brachial] 58 L Respiratory Rate 20 18 18 Blood Pressure [Left Arm] 153/73 O2 Sat by Pulse Oximetry 98 10/16/21 16:00 10/16/21 19:00 10/16/21 19:30 Temperature 98.1 F Pulse Rate [Bilateral Radial] Pulse Rate [Left Brachial] 66 Respiratory Rate 20 18 20 Blood Pressure [Left Arm] 170/82 O2 Sat by Pulse Oximetry 95 10/16/21 20:00 10/16/21 23:17 10/16/21 23:47 Temperature 98.3 F Pulse Rate [Bilateral Radial] Pulse Rate [Left Brachial] 68 Respiratory Rate 20 20 20 Blood Pressure [Left Arm] 186/91 O2 Sat by Pulse Oximetry 96 10/17/21 00:00 10/17/21 00:58 10/17/21 04:00 Temperature 98.3 F 97.5 F L Pulse Rate [Bilateral Radial] Pulse Rate [Left Brachial] 63 96 H Respiratory Rate 20 20 Blood Pressure [Left Arm] 188/84 147/73 146/66 O2 Sat by Pulse Oximetry 98 95 10/17/21 08:00 10/17/21 12:00 10/17/21 16:00 Temperature 97.7 F 97.4 F L 97.7 F Pulse Rate [Bilateral Radial] Pulse Rate [Left Brachial] 57 L 68 64 Respiratory Rate 18 18 18 Blood Pressure [Left Arm] 173/80 177/79 181/81 O2 Sat by Pulse Oximetry 96 100 98 10/17/21 19:12 10/17/21 19:42 10/17/21 20:00 Temperature 97.6 F Pulse Rate [Bilateral Radial] Pulse Rate [Left Brachial] 61 Respiratory Rate 20 20 20 Blood Pressure [Left Arm] 185/85 O2 Sat by Pulse Oximetry 93 L 10/18/21 00:00 10/18/21 01:44 10/18/21 01:57 Temperature 97.8 F Pulse Rate [Bilateral Radial] Pulse Rate [Left Brachial] 57 L Respiratory Rate 20 Blood Pressure [Left Arm] 188/86 170/75 170/78 O2 Sat by Pulse Oximetry 96 10/18/21 02:04 10/18/21 02:22 10/18/21 02:34 Temperature Pulse Rate [Bilateral Radial] Pulse Rate [Left Brachial] Respiratory Rate Blood Pressure [Left Arm] 177/76 170/78 165/78 O2 Sat by Pulse Oximetry 10/18/21 02:44 10/18/21 04:00 10/18/21 05:40 Temperature 98.3 F Pulse Rate [Bilateral Radial] Pulse Rate [Left Brachial] 53 L Respiratory Rate 20 Blood Pressure [Left Arm] 172/81 197/91 170/88 O2 Sat by Pulse Oximetry 96 10/18/21 05:50 10/18/21 06:00 10/18/21 06:10 Temperature Pulse Rate [Bilateral Radial] Pulse Rate [Left Brachial] Respiratory Rate Blood Pressure [Left Arm] 168/72 175/81 186/87 O2 Sat by Pulse Oximetry 10/18/21 06:20 10/18/21 06:34 10/18/21 08:00 Temperature 97.8 F Pulse Rate [Bilateral Radial] Pulse Rate [Left Brachial] 56 L Respiratory Rate 20 Blood Pressure [Left Arm] 173/78 180/85 182/83 O2 Sat by Pulse Oximetry 95 10/18/21 12:00 10/18/21 12:50 10/18/21 12:55 Temperature 97.6 F Pulse Rate [Bilateral Radial] Pulse Rate [Left Brachial] 56 L Respiratory Rate 18 Blood Pressure [Left Arm] 187/85 188/86 174/81 O2 Sat by Pulse Oximetry 96 10/18/21 13:00 10/18/21 15:40 10/18/21 17:30 Temperature 97.6 F Pulse Rate [Bilateral Radial] 61 Pulse Rate [Left Brachial] Respiratory Rate 20 18 Blood Pressure [Left Arm] 171/76 171/81 O2 Sat by Pulse Oximetry 10/18/21 18:00 10/18/21 20:00 10/19/21 00:00 Temperature 97.5 F L 97.5 F L Pulse Rate [Bilateral Radial] 58 L Pulse Rate [Left Brachial] 59 L Respiratory Rate 18 18 20 Blood Pressure [Left Arm] 177/83 151/69 O2 Sat by Pulse Oximetry 97 96 10/19/21 04:00 Temperature 97.6 F Pulse Rate [Bilateral Radial] 59 L Pulse Rate [Left Brachial] Respiratory Rate 18 Blood Pressure [Left Arm] 129/67 O2 Sat by Pulse Oximetry 98 Labs: Laboratory Last Values WBC 9.6 X10^3/uL (3.6-10.0) 10/19/21 03:40 RBC 4.14 X10^6/uL (4.7-6.0) L 10/19/21 03:40 Hgb 11.9 g/dL (13.5-18.0) L 10/19/21 03:40 Hct 35.1 % (42.0-54.0) L 10/19/21 03:40 MCV 84.9 fL (80.0-100.0) 10/19/21 03:40 MCH 28.8 pg (27.0-34.0) 10/19/21 03:40 MCHC 34.0 g/dL (33.0-35.0) 10/19/21 03:40 RDW 13.9 % (11.6-16.5) 10/19/21 03:40 Plt Count 198 X10^3/uL (150.0-450.0) 10/19/21 03:40 MPV 7.9 fL (7.4-11.0) 10/19/21 03:40 Neut % (Auto) 56.2 % (42.0-75.0) 10/19/21 03:40 Lymph % (Auto) 34.6 % (21.0-51.0) 10/19/21 03:40 [place] % (Auto) 8.7 % (0.0-13.0) 10/19/21 03:40 Eos % (Auto) 0.3 % (0.9-2.9) L 10/19/21 03:40 Baso % (Auto) 0.2 % (0.2-1.0) 10/19/21 03:40 Neut # (Auto) 5.4 x10^3/uL (2.2-4.8) H 10/19/21 03:40 Lymph # (Auto) 3.3 X10^3/uL (1.3-2.9) H 10/19/21 03:40 [place] # (Auto) 0.8 x10^3/uL (0.3-0.8) 10/19/21 03:40 Eos # (Auto) 0.0 x10^3/uL (0.0-0.2) 10/19/21 03:40 Baso # (Auto) 0.0 X10^3/uL (0.0-0.1) 10/19/21 03:40 Absolute Nucleated RBC 0.0 /100WBC 10/19/21 03:40 Sodium 133 mmol/L (136-145) L 10/19/21 03:40 Corrected Sodium 137 mmol/L (136-145) 10/19/21 03:40 Potassium 3.8 mmol/L (3.5-5.1) 10/19/21 03:40 Chloride 99 mmol/L (98-107) 10/19/21 03:40 Carbon Dioxide 29.3 mmol/L (21-32) 10/19/21 03:40 BUN 25 mg/dL (7-18) H 10/19/21 03:40 Creatinine 0.95 mg/dL (0.70-1.30) 10/19/21 03:40 Est GFR (MDRD) Af Amer > 60 (>60) 10/19/21 03:40 Est GFR (MDRD) Non-Af > 60 (>60) 10/19/21 03:40 Glucose 285 mg/dL (65-99) H 10/19/21 03:40 POC Glucose (mg/dL) 296 mg/dL (65-99) H 10/18/21 20:58 Calcium 8.8 mg/dL (8.5-10.1) 10/19/21 03:40 Corrected Calcium 9.8 mg/dL (8.5-10.1) 10/19/21 03:40 Total Bilirubin 0.20 mg/dL (0.2-1.0) 10/19/21 03:40 AST 8 Units/L (15-37) L 10/19/21 03:40 ALT 15 Units/L (12-78) 10/19/21 03:40 Alkaline Phosphatase 70 Units/L (46-116) 10/19/21 03:40 Total Protein 5.8 g/dL (6.4-8.2) L 10/19/21 03:40 Albumin 2.7 g/dL (3.4-5.0) L 10/19/21 03:40 Globulin 3.1 g/dL (2.5-4.5) 10/19/21 03:40 Albumin/Globulin Ratio 0.9 Ratio (1.1-2.1) L 10/19/21 03:40 Total PSA 0.16 ng/mL (0.13-4.0) 10/14/21 10:21 Specimen Type Clean catch urine 10/14/21 15:50 Urine Color [place] (YELLOW) 10/14/21 15:50 Urine Appearance Clear (CLEAR) 10/14/21 15:50 Urine pH 5.0 (5.0 - 8.0) 10/14/21 15:50 Ur Specific [place] 1.025 (1.000-1.030) 10/14/21 15:50 Urine Protein 2+ (NEGATIVE) 10/14/21 15:50 Urine Glucose (UA) Negative (NEGATIVE) 10/14/21 15:50 Urine Ketones Negative (NEGATIVE) 10/14/21 15:50 Urine Blood Negative (NEGATIVE) 10/14/21 15:50 Urine Nitrite Negative (NEGATIVE) 10/14/21 15:50 Urine Bilirubin 2+ (NEGATIVE) 10/14/21 15:50 Urine Urobilinogen 1+ (NORMAL) 10/14/21 15:50 Ur Leukocyte Esterase Negative (NEGATIVE) 10/14/21 15:50 Urine RBC None seen /HPF (0-3) 10/14/21 15:50 Urine WBC 0-2 /HPF (0-5) 10/14/21 15:50 Ur Squamous Epith Cells Rare /HPF (NEGATIVE) 10/14/21 15:50 Amorphous Sediment 1+ /HPF (NEGATIVE) 10/14/21 15:50 Urine Bacteria Trace /HPF (NEGATIVE) 10/14/21 15:50 Hyaline Casts Few /LPF (NEGATIVE) 10/14/21 15:50 Urine Mucus Few /HPF (NEGATIVE) 10/14/21 15:50 Urine Sperm Rare /HPF (NEGATIVE) 10/14/21 15:50 Ur Culture Indicated? No/not indicated 10/14/21 15:50 SARS-CoV-2 (PCR) Negative (NEGATIVE) 10/14/21 10:20 SARS-CoV-2 (PCR) Cancelled 10/14/21 10:20 Reason For Visit: SEVERE BACK PAIN, PROSTATE CANCER Discharge Date Discharge Date: 10/19/21 Discharge Diagnosis All Active Problems (Updated 10/20/21 @ 14:01 by Shona Ceja) Lumbar arthropathy (Acute) Impaired ambulation (Acute) Hypothyroidism (Acute) Multilevel degenerative disc disease (Chronic) Flank pain (Acute) Type 2 diabetes mellitus (Chronic) HTN (hypertension) (Chronic) Prostate cancer (Chronic) Plan of Treatment: Continue with present treatment and follow up plan. Pt is to keep follow up appointment as instructed and take medications as ordered. Discharge Medications Discharge Medications: No Known Drug Allergies Allergy (Verified 03/03/21 07:37) CONTINUE taking the following medications Kombiglyze XR 1 tab PO DAILY 10/14/21 [History] Lantus Solostar U-100 Insulin 65 unit SUBCUT DAILY 10/14/21 [History] carvedilol 12.5 mg PO BID 10/14/21 [History] ketorolac 10 mg PO PRN PRN 10/14/21 [History] levothyroxine 200 mcg PO DAILYAC 10/14/21 [History] nifedipine [Procardia XL] 1 mg PO DAILY 10/14/21 [History] rosuvastatin 40 mg PO HS 10/14/21 [History] tamsulosin 0.4 mg PO HS 10/14/21 [History] New Prescriptions cyclobenzaprine 10 mg PO Q6HR PRN #30 tab 10/19/21 [Rx] gabapentin 300 mg PO TID 30 Days #90 cap 10/19/21 [Rx] glipizide 5 mg PO DAILYWB 30 Days #30 tab 10/19/21 [Rx] oxycodone-acetaminophen [Percocet] 1 tab PO Q8H PRN #30 tab MDD 3 10/19/21 [Rx] Follow up and Referral Follow Up: 1 Week (PCP) Discharge Disposition Discharge Disposition: Home Discharge Condition: Stable Discharge Plan Discharge Plan Hospital Course: Mr Rodarte is a 70 y/o male with a PMH of prostate cancer s/p radiation, carcinoid tumor, type 2 diabetes, HTN and HLD presented with worsening right flank pain. He said it started 2 days ago and has been worsening. He came to see Dr Bourgeois this morning for a trigger point injection but he could hardly walk and was in severe pain so he was sent for admission. He states it started suddenly 2 days ago, mostly right side flank area. He states it hurts when he tries to walk. Denies any falls or injuries. Denies heavy lifting or any trauma. He saw Dr De La Rosa (urology) 2 weeks ago. He was suppose to have CTAP done to follow up for his prostate cancer but he could not make his appointment due to severe pain. He denies numbness or tingling. He did not have any bone mets from the cancer. Denies urinary symptoms, denies hematuria. Patient was admitted for pain control and further management. He had lumbar XR which showed multilevel DDD. Right hip XR was negative. CTAP was also done to rule out any acute process, it did not show any acute abnormalities. Patient continued to have pain with ambulation. He was also started on IV steroids, muscle relaxers and gabapentin. PT/OT was consulted. Patient's pain gradually improved and he was ambulating to the bathroom. His BP and glucose levels were elevated due to steroids. He did receive clonidine and IV hydralazine prn. He also had lumbar MRI which showed multi-level severe DDD with nerve root compression. Patient sees Dr Humphrey and had a back stimulator placed less than a year ago. His pain was better controlled and he was stable for discharge. He was started on glipizide and metformin was stopped. He will f/u with Dr. Humphrey and PCP as scheduled. Patient Disposition: 01 HOME, SELF-CARE Condition: Stable Health Concerns: Post Hospitalization: new medications and changes needed to prevent readmission or further decline. Pt educated and given instructions on all concerns. Care Plan Goals: Problem: Pain/Alteration in Comfort Goal: Improve/ Resolve Pain; Achieve Pain Tolerance Instructions: Take pain medications as prescribed. Contact your primary care provider if your pain is unrelieved or worsens. Follow up with primary care provider as directed. Plan of Treatment: Continue with present treatment and follow up plan. Pt is to keep follow up appointment as instructed and take medications as ordered. Prescriptions: New cyclobenzaprine 10 mg Tablet 10 mg PO Q6HR PRNQty: 30 RF: 0 oxycodone-acetaminophen [Percocet] 5-325 mg Tablet 1 tab PO Q8H MDD 3 PRN (Reason: Pain) Qty: 30 RF: 0 glipizide 5 mg Tablet Extended Release 24 Hr 5 mg PO DAILYWB 30 Days Qty: 30 RF: 0 gabapentin 300 mg Capsule 300 mg PO TID 30 Days Qty: 90 RF: 0 Continued carvedilol 12.5 mg Tablet 12.5 mg PO BID RF: 0 ketorolac 10 mg Tablet 10 mg PO PRN PRN (Reason: Mild Pain (Scale Score 1-4)) RF: 0 levothyroxine 200 mcg Recon Soln 200 mcg PO DAILYAC RF: 0 tamsulosin 0.4 mg Capsule 0.4 mg PO HS RF: 0 nifedipine [Procardia XL] 90 mg Tablet Extended Release 24 Hr 1 mg PO DAILY RF: 0 rosuvastatin 40 mg Tablet 40 mg PO HS RF: 0 Lantus Solostar U-100 Insulin 100 unit/mL (3 mL) Insulin Pen 65 unit SUBCUT DAILY RF: 0 Kombiglyze XR 5-1,000 mg Tablet, Er Multiphase 24 Hr 1 tab PO DAILY RF: 0 Discontinued metformin 750 mg Tablet Extended Release 24 Hr 500 mg PO BID RF: 0 Orders to Discharge Patient Discharge Orders: Discharge (Routine); Ordered 10/19/21 Ordered By: NAE NELSON Follow ups/Referrals Follow ups/Referrals: NAE NELSON [STAFF PHYSICIAN] - 10/26/21 11:30 am Shona Ceja [Primary Care Provider] - 10/26/21 11:00 am Instructions Instructions: Preventing Osteoarthritis, Adult, Aspirin and Your Heart, Degenerative Disk Disease, Spear Tackler's Spine, How to Take Your Blood Pressure, Sgar-kx-Yahf, Spondylolysis Rehab-SportsMed, Living With Diabetes, Hypertension, Adult, Afhx-wy-Xwzu, Form - Blood Pressure Record Sheet, Fall Prevention in the Home, Fall Prevention in Hospitals, Adult, Laminectomy, Care After, Blood Glucose Monitoring, Adult, Hypertension Activity Restrictions/Additional Instructions: Continue taking current medications for blood pressure, monitor BP daily. Stop metformin, start glipizide and continue Kombiglyze and insulin. Monitor blood glucose. Stand Alone Forms: Excuse From Work or School, Precautions for COVID, [facility], Patient Portal, Social Distancing Patient Education Addl Reference Links: Lumbar arthropathy [email or web address] [email or web address]=Male&[email or web address].v=[email or web address]&age.[email or web address].u=a&[email or web address]&informationRecipient=[email or web address]&perfor shamar.languageCode.c=en&mainSearchCriteria .v.i=[id number]&mainSearchCriteria.v.cs=[email or web address]&mainSearchCriteria .v.dn=Lumbar+arthropathy&mainSearchCriteria.v.h9=500.3&mainSearchCriteria.v.cs1= [id number]&mainSearchCriter ia.v.dn1=Lumbar+arthropathy&mainSearchCriteria.v.c2=[id number]&mainSearchCriteria.v .cs2=[id number]&mainSearchCriteria.v.dn2=Lumbar+arthropathy
[2021-10-19] MEDS ORDERED: LANTUS SC SCH (09:00)
[2021-10-19] MEDS: COREG TAB 12.5 MG PO SCH (09:07)
[2021-10-19] MEDS: PROCARDIA XL PO SCH (09:08)
[2021-10-19] MEDS: ZESTRIL TAB 40 MG PO SCH (09:08)
[2021-10-19] MEDS: LOVENOX INJ 40 MG SYR SC SCH (09:09)
[2021-10-19] MEDS: METFORMIN PO SCH (09:11)
[2021-10-19] MEDS: SAXAGLIPTIN PO SCH (09:11)
[2021-10-19] MEDS: [UNRECOGNIZED DRUG - OTHER] PO SCH (09:11)
--- NOTE | 2021-10-19 10:49 | DR.PROGNOT ---
Hospital Progress Notes - Progress Note for Day of: Progress Note Date: 10/19/21 - Chief Complaint Chief Complaint: pain is better controlled .. able to aqmbulate for short distance .. MRI showed disc disease lumbar area .. - Past Medical Family Social History Past Med/Fam/Surg Hx: No changes since H&P Allergies: Allergies No Known Drug Allergies Allergy (Verified 03/03/21 07:37) - Review Of Systems ROS: No change since H&P - Vital Signs Vital Signs: Temperature 97.6 F Pulse Rate [Left Brachial] 59 Pulse Rate [Bilateral Radial] 59 Respiratory Rate 18 Blood Pressure [Left Arm] 129/67 Blood Pressure [Right Arm] 177/72 Blood Pressure 184/86 O2 Sat by Pulse Oximetry 98 - Physical Exam Oriented: Normal Eyes: Normal Ear: Normal Nose: Normal Throat: Normal Respiratory: Normal Cardiovascular: Normal GI:Auscultation: Normal GI:Palpation: Normal GI: Tenderness: Normal, Other (right flank area mild tenderness, soft) Skin: Normal Musculoskeletal: Right (right lower back/flank tenderness, no bruising or signs of trauma. Focal tenderness.) Psychiatric: Normal Mood Description: Calm Affect: Normal Speech Pattern: Clear, Appropriate - Laboratory and Diagnostics Result Diagrams: 10/19/21 03:40 10/19/21 03:40 Labs: Laboratory WBC 9.6 X10^3/uL (3.6-10.0) 10/19/21 03:40 RBC 4.14 X10^6/uL (4.7-6.0) L 10/19/21 03:40 Hgb 11.9 g/dL (13.5-18.0) L 10/19/21 03:40 Hct 35.1 % (42.0-54.0) L 10/19/21 03:40 MCV 84.9 fL (80.0-100.0) 10/19/21 03:40 MCH 28.8 pg (27.0-34.0) 10/19/21 03:40 MCHC 34.0 g/dL (33.0-35.0) 10/19/21 03:40 RDW 13.9 % (11.6-16.5) 10/19/21 03:40 Plt Count 198 X10^3/uL (150.0-450.0) 10/19/21 03:40 MPV 7.9 fL (7.4-11.0) 10/19/21 03:40 Neut % (Auto) 56.2 % (42.0-75.0) 10/19/21 03:40 Lymph % (Auto) 34.6 % (21.0-51.0) 10/19/21 03:40 [place] % (Auto) 8.7 % (0.0-13.0) 10/19/21 03:40 Eos % (Auto) 0.3 % (0.9-2.9) L 10/19/21 03:40 Baso % (Auto) 0.2 % (0.2-1.0) 10/19/21 03:40 Neut # (Auto) 5.4 x10^3/uL (2.2-4.8) H 10/19/21 03:40 Lymph # (Auto) 3.3 X10^3/uL (1.3-2.9) H 10/19/21 03:40 [place] # (Auto) 0.8 x10^3/uL (0.3-0.8) 10/19/21 03:40 Eos # (Auto) 0.0 x10^3/uL (0.0-0.2) 10/19/21 03:40 Baso # (Auto) 0.0 X10^3/uL (0.0-0.1) 10/19/21 03:40 Absolute Nucleated RBC 0.0 /100WBC 10/19/21 03:40 Sodium 133 mmol/L (136-145) L 10/19/21 03:40 Corrected Sodium 137 mmol/L (136-145) 10/19/21 03:40 Potassium 3.8 mmol/L (3.5-5.1) 10/19/21 03:40 Chloride 99 mmol/L (98-107) 10/19/21 03:40 Carbon Dioxide 29.3 mmol/L (21-32) 10/19/21 03:40 BUN 25 mg/dL (7-18) H 10/19/21 03:40 Creatinine 0.95 mg/dL (0.70-1.30) 10/19/21 03:40 Est GFR (MDRD) Af Amer > 60 (>60) 10/19/21 03:40 Est GFR (MDRD) Non-Af > 60 (>60) 10/19/21 03:40 Glucose 285 mg/dL (65-99) H 10/19/21 03:40 POC Glucose (mg/dL) 296 mg/dL (65-99) H 10/18/21 20:58 Calcium 8.8 mg/dL (8.5-10.1) 10/19/21 03:40 Corrected Calcium 9.8 mg/dL (8.5-10.1) 10/19/21 03:40 Total Bilirubin 0.20 mg/dL (0.2-1.0) 10/19/21 03:40 AST 8 Units/L (15-37) L 10/19/21 03:40 ALT 15 Units/L (12-78) 10/19/21 03:40 Alkaline Phosphatase 70 Units/L (46-116) 10/19/21 03:40 Total Protein 5.8 g/dL (6.4-8.2) L 10/19/21 03:40 Albumin 2.7 g/dL (3.4-5.0) L 10/19/21 03:40 Globulin 3.1 g/dL (2.5-4.5) 10/19/21 03:40 Albumin/Globulin Ratio 0.9 Ratio (1.1-2.1) L 10/19/21 03:40 Total PSA 0.16 ng/mL (0.13-4.0) 10/14/21 10:21 Specimen Type Clean catch urine 10/14/21 15:50 Urine Color [place] (YELLOW) 10/14/21 15:50 Urine Appearance Clear (CLEAR) 10/14/21 15:50 Urine pH 5.0 (5.0 - 8.0) 10/14/21 15:50 Ur Specific [place] 1.025 (1.000-1.030) 10/14/21 15:50 Urine Protein 2+ (NEGATIVE) 10/14/21 15:50 Urine Glucose (UA) Negative (NEGATIVE) 10/14/21 15:50 Urine Ketones Negative (NEGATIVE) 10/14/21 15:50 Urine Blood Negative (NEGATIVE) 10/14/21 15:50 Urine Nitrite Negative (NEGATIVE) 10/14/21 15:50 Urine Bilirubin 2+ (NEGATIVE) 10/14/21 15:50 Urine Urobilinogen 1+ (NORMAL) 10/14/21 15:50 Ur Leukocyte Esterase Negative (NEGATIVE) 10/14/21 15:50 Urine RBC None seen /HPF (0-3) 10/14/21 15:50 Urine WBC 0-2 /HPF (0-5) 10/14/21 15:50 Ur Squamous Epith Cells Rare /HPF (NEGATIVE) 10/14/21 15:50 Amorphous Sediment 1+ /HPF (NEGATIVE) 10/14/21 15:50 Urine Bacteria Trace /HPF (NEGATIVE) 10/14/21 15:50 Hyaline Casts Few /LPF (NEGATIVE) 10/14/21 15:50 Urine Mucus Few /HPF (NEGATIVE) 10/14/21 15:50 Urine Sperm Rare /HPF (NEGATIVE) 10/14/21 15:50 Ur Culture Indicated? No/not indicated 10/14/21 15:50 SARS-CoV-2 (PCR) Negative (NEGATIVE) 10/14/21 10:20 SARS-CoV-2 (PCR) Cancelled 10/14/21 10:20 - Assessment and Plan 1: severe lumbar and flank pain .. disc disease and radiculopathy . arthritis lower back . RT inguinal hernia .. to discharge and follow by othropedic and Dr Ceja . we will follow for the RT groin pain and inguinal hernia ..
[2021-10-19 11:53] VITALS: BP 122/74
== END 2021-10-19 09:45 | disposition home or self-care (01) ==
LOC: MED/SURG
PROVIDERS: ADMIT Surgery; ATTEND Surgery
DX: R26.2 Difficulty in walking, not elsewhere classified; R26.89 Other abnormalities of gait and mobility; M47.816 Spondylosis without myelopathy or radiculopathy, lumbar region; C61 Malignant neoplasm of prostate; E11.65 Type 2 diabetes mellitus with hyperglycemia; Z79.4 Long term (current) use of insulin; E03.8 Other specified hypothyroidism; R10.84 Generalized abdominal pain; K40.90 Unilateral inguinal hernia, without obstruction or gangrene, not specified as recurrent; Z92.3 Personal history of irradiation; I10 Essential (primary) hypertension; Z96.82 Presence of neurostimulator; M54.89 Other dorsalgia